=== PATIENT | male | born 1960 | race Asian ===

== ENCOUNTER 2018-11-22 16:36 | Inpatient (IN) | payer MEDICAID, OTHER ==
[~2018-11-22] VITALS: Ht 168.9 cm; Wt 82.7 kg
[2018-11-22] MEDS ORDERED: METF500T24 PO (16:57)
[2018-11-22] MEDS ORDERED: OMEG-135 PO (16:57)
[2018-11-22] MEDS ORDERED: ASPI-817 PO (16:57)
[2018-11-22] MEDS ORDERED: HYDR12.58 PO (16:58)
[2018-11-22] MEDS ORDERED: LISI-471 PO (16:58)
[2018-11-22] MEDS ORDERED: MULT-893 PO (16:59)
[2018-11-22] MEDS ORDERED: SOD CHLORIDE 0.9% 1,000 ML IV STA (17:14)
[2018-11-22] MEDS ORDERED: PANTOPRAZOLE IV 80 MG in SOD CHLORIDE 0.9% 100 ML IVPB STA (17:17)
[2018-11-22] MEDS ORDERED: FAMOTIDINE 20 MG INJ IV STA (17:17)
[2018-11-22] MEDS ORDERED: LORAZEPAM 2 MG INJ IV PRN (18:30)
[2018-11-22] MEDS ORDERED: ALBUTEROL/IPRATROPIUM (NEB) 3 ML AMP HHN PRN (18:30)
[2018-11-22] MEDS ORDERED: ACETAMINOPHEN 325 MG TAB PO PRN (18:30)
[2018-11-22] MEDS ORDERED: HYDROCODONE/APAP (5/325) TAB PO PRN (18:30)
[2018-11-22] MEDS ORDERED: NITROGLYCERIN (SL) 0.4 MG TAB SL PRN (18:30)
[2018-11-22] MEDS ORDERED: morphine 2 MG INJ IV PRN (18:30)
[2018-11-22] MEDS ORDERED: ONDANSETRON 4 MG INJ IV PRN (18:30)
[2018-11-22] MEDS ORDERED: PANTOPRAZOLE IV 80 MG in SOD CHLORIDE 0.9% 100 ML IV SCH (18:30)
[2018-11-22] MEDS ORDERED: MAGNESIUM HYDROXIDE 30ML CUP PO PRN (18:30)
[2018-11-22] MEDS ORDERED: OCTREOTIDE 1 MG in DEXTROSE 5% 95 ML IV SCH (18:30)
[2018-11-22] MEDS ORDERED: NACL 0.9% 3 ML SYG IV SCH (18:30)
[2018-11-22] MEDS ORDERED: DOCUSATE SODIUM 100 MG CAP PO PRN (18:30)
[2018-11-22] MEDS ORDERED: hydrALAzine 20 MG INJ IV PRN (18:30)
[2018-11-22] MEDS ORDERED: SOD CHLORIDE 0.9% 0 ML ONE (18:56)
[2018-11-22] MEDS ORDERED: IOHEXOL 300MG/ML 150 ML BTL ONE (18:56)
[2018-11-22] MEDS ORDERED: PANTOPRAZOLE IV 80 MG in SOD CHLORIDE 0.9% 100 ML IV STA (19:09)
--- NOTE | 2018-11-22 19:10 | ERD ---
ER Documentation Chief Complaint Chief Complaint Bloody stool since tuesday HPI This is a 58-year-old male with a past medical history of diabetes and hypertension. The patient denies any history of alcohol use or NSAID use. The patient indicates that for the past 3 days he has been having dark tarry stools. Earlier today the patient started to notice that he was having bright red blood per rectum. He is felt weak and dizzy. He however denies any abdominal pain. He states he never had any similar symptoms in the past. He is not on any anticoagulation. ROS All systems reviewed and are negative except as per history of present illness. Medications Home Meds Reported Medications Multivit-Min/FA/Lycopen/Lutein (Men 50 Plus Multivitamin Tab) 1 Each Tablet, 1 EACH PO DAILY, TAB 11/22/18 Hydrochlorothiazide* (Hydrochlorothiazide*) 12.5 Mg Tablet, 12.5 MG PO DAILY, #30 TAB 11/22/18 Lisinopril* (Lisinopril*) 20 Mg Tablet, 20 MG PO DAILY, #30 TAB 11/22/18 [place]-3 Fatty Acids/Fish Oil (Fish Oil 1,000 mg Capsule) 1 Each Capsule, 1 EACH PO DAILY, CAP 11/22/18 Aspirin* (Aspirin* EC) 81 Mg Tablet.dr, 81 MG PO DAILY, TAB 11/22/18 Metformin Hcl* (Metformin Hcl*) 500 Mg Tablet, 500 MG PO WITH BREAKFAST DINNE, #60 TAB 11/22/18 Allergies Allergies: Coded Allergies: No Known Allergy (Unverified , 11/22/18) PMhx/Soc History of Surgery: No Anesthesia Reaction: No Hx Neurological Disorder: No Hx Respiratory Disorders: No Hx Cardiac Disorders: Yes (HTN) Hx Psychiatric Problems: No Hx Miscellaneous Medical Probl: No Hx Alcohol Use: No Hx Substance Use: No Hx Tobacco Use: No Smoking Status: Never smoker Physical Exam Vitals Vital Signs Date Temp Pulse Resp B/P (MAP) Pulse Ox O2 O2 Flow FiO2 Time Delivery Rate 11/22/18 98.5 123 20 95/57 (70) 100 Room Air 16:52 11/22/18 98.5 110 20 98/55 (69) 100 16:45 Physical Exam Constitutional:Well-developed. Well-nourished. HEENT:Normocephalic. Atraumatic.Pupils were equal round reactive to light. Moist mucous membranes.No tonsillar exudates. Significant conjunctival pallor Neck: No nuchal rigidity. No lymphadenopathy. No posterior cervical spine tenderness or step-offs. Respiratory: Not using accessory muscles of respiration.Lungs were clear to auscultation bilaterally. No rhonchi. No rales. No wheezing. Cardiovascular: Regular rate regular rhythm.No murmurs. No rubs were appreciated.S1, S2 normal. Distal pulses are palpable 2+ bilaterally. GI: Abdomen was soft. Nontender. Non Distended. No pulsatile abdominal masses or bruits. No rebound. No guarding. Bowel sounds were present and normal. RECTAL: Melanotic stools. Fecal occult blood test was positive. Muscle skeletal: Full range of motion of both the upper and lower extremities bilaterally.Normal muscle tone.No assymetrical calf tenderness or swelling. Skin: Diffuse pallor. No petechia no purpura NEURO: Patient was alert, awake, orientated x3.No facial droop. Result Diagram: 11/23/18 1111 11/23/18 1111 Results 24 hrs Laboratory Tests Test 11/22/18 16:49 White Blood Count 14.0 10^3/ul Red Blood Count 2.23 10^6/ul Hemoglobin 6.7 g/dl Hematocrit 20.4 % Mean Corpuscular Volume 91.5 fl Mean Corpuscular Hemoglobin 30.0 pg Mean Corpuscular Hemoglobin Concent 32.8 g/dl Red Cell Distribution Width 13.3 % Platelet Count 226 10^3/UL Mean Platelet Volume 9.8 fl Immature Granulocytes % 2.000 % Neutrophils % % Lymphocytes % % Monocytes % % Eosinophils % % Basophils % % Nucleated Red Blood Cells % 0.6 /100WBC Immature Granulocytes # 0.280 10^3/ul Neutrophils # 10^3/ul Lymphocytes # 10^3/ul Monocytes # 10^3/ul Eosinophils # 10^3/ul Basophils # 10^3/ul Nucleated Red Blood Cells # 10^3/ul Pathologist Review (Hematology) YES Prothrombin Time 14.7 Sec Prothrombin Time Ratio 1.1 INR International Normalized Ratio 1.14 Activated Partial Thromboplast Time 22.0 Sec Sodium Level 136 mmol/L Potassium Level 4.1 mmol/L Chloride Level 103 mmol/L Carbon Dioxide Level 19 mmol/L Anion Gap 14 Blood Urea Nitrogen 19 mg/dl Creatinine 1.02 mg/dl Est Glomerular Filtrat Rate mL/min > 60 mL/min Glucose Level 320 mg/dl Hemoglobin A1c 9.3 % Calcium Level 7.5 mg/dl Iron Level 58 ug/dl Total Iron Binding Capacity 280 ug/dl Percent Iron Saturation 21 % SAT Transferrin 205 mg/dL Ferritin 121.0 ng/ml Total Bilirubin 0.2 mg/dl Direct Bilirubin 0.00 mg/dl Indirect Bilirubin 0.2 mg/dl Aspartate Amino Transf (AST/SGOT) 25 IU/L Alanine Aminotransferase (ALT/SGPT) 27 IU/L Alkaline Phosphatase 49 IU/L Troponin I < 0.012 ng/ml Total Protein 4.5 g/dl Albumin 2.7 g/dl Globulin 1.80 g/dl Albumin/Globulin Ratio 1.50 Amylase Level 68 U/L Lipase 151 U/L Free Thyroxine 0.78 ng/dl Current Medications Medications Dose Sig/Dinah Start Time Status Last (Trade) Ordered Route PRN Stop Time Admin Dose Reason Admin Sodium 1,000 ml @ Q1H STAT 11/22/18 DC 11/22/18 Chloride 1,000 mls/hr IV 17:14 17:23 11/22/18 18:13 Famotidine 20 mg ONCE STAT 11/22/18 DC 11/22/18 (Pepcid Iv) IV 17:17 17:23 11/22/18 17:18 Pantoprazole 100 ml @ ONCE STAT 11/22/18 DC 11/22/18 80 mg/Sodium 400 mls/hr IVPB 17:17 17:53 Chloride 11/22/18 17:31 IV Flush 3 ml PER 11/22/18 (NS 3 ml) PROTOCOL IV 18:30 Ondansetron 4 mg Q6H PRN 11/22/18 DC HCl (Zofran IV 18:30 Inj) NAUSEA/VOMITI 11/22/18 23:04 NG 650 mg Q6H PRN 11/22/18 Acetaminophen PO .PAIN 1-3 18:30 (Tylenol OR TEMP Tab) 1 tab Q6H PRN 11/22/18 Acetaminophen PO .MOD PAIN 18:30 / 4-6 Hydrocodone Bitart ([place] (5/325)) Morphine 2 mg Q4H PRN 11/22/18 Sulfate IV .SEVERE 18:30 (morphine) PAIN 7-10 Docusate 100 mg Q12H PRN 11/22/18 Sodium PO 18:30 (Colace) .CONSTIPATION Magnesium 30 ml DAILY PRN 11/22/18 Hydroxide PO 18:30 (Milk Of Mag) .CONSTIPATION Lorazepam 0.5 mg Q6H PRN 11/22/18 (Ativan) IV ANXIETY 18:30 Sodium 1,000 ml @ Q8H IV 11/22/18 11/23/18 Chloride 125 mls/hr 18:25 15:36 Albuterol/ 3 ml Q4H RESP 11/22/18 Ipratropium THERAPY PRN 18:30 (Duoneb) HHN SHORTNESS OF BREATH Hydralazine 10 mg Q6H PRN 11/22/18 HCl IV ELEVATED 18:30 (Apresoline) BLOOD PRESSURE 1 tab Q5M PRN 11/22/18 Nitroglycerin SL ANGINA 18:30 (Nitroglyceri n (Sl Tab) 0.4 Mg) Pantoprazole 100 ml @ Q10H IV 11/22/18 DC 11/22/18 80 mg/Sodium 10 mls/hr 18:30 19:52 Chloride 11/23/18 02:18 Octreotide 100 ml @ 5 Q20H IV 11/22/18 DC 11/22/18 Acetate 1 mls/hr 18:30 19:52 mg/ Dextrose 11/22/18 23:04 Procedures/MDM The patient presented to the emergency department with a presentation of upper gastrointestinal bleeding as he was having melanotic stools. My differential diagnosis included but was not limited to peptic ulcer disease, gastric or esophageal erosions, gastritis, esophageal varices, Arina-Crews tear, tumor or arteriovenous malformations. The patient had significant pallor immediately placed in a quality assurance monitor chassis continuous pulse oximetry and IV access was established by nursing staff. the patient said he felt comfortable walking to the bathroom however immediately upon standing the patient became very unsteady in his gait. The patient had near syncope episode. Nursing staff coming to the bedside. The patient had significant pallor, was tachycardic and hypotensive. He was unable to answer questions appropriately. I immediately ordered uncrossed matched blood and placed the patient on a nonrebreather. Within several minutes of using the rapid transfusion of blood the patient had significant improvement of his mental status. He was now alert awake oriented x3. He was maintaining his airway. The tachycardia had resolved. His blood pressure improved. He was typed and crossed 2 units of packed red blood cells. 12 Lead EKG tracing ordered and reviewed by myself showed: Sinus tachycardia of 122 bpm and no arrhythmia. [place] interval normal. QRS duration normal. No ST segment elevation No ST segment depression. No changes consistent with acute ischemia. Repeated EKG after the uncrossed match blood given on an emergent basis due to the active bleeding and again the following. The patient had a sinus tachycardia 101 bpm. Parent arrival is normal QRS duration was normal. There is no ST segment elevation or depression. Nursing staff approached me and indicated that the patient was now having a bowel movement with a significant amount of blood present in the rectal basin. The patient continued to have the active bleeding from the rectum with bright red blood. An emergent GI consult was placed to Dr. Stevens. I spoke with him personally. He indicated that an NG tube should be placed to low to continuous suction in order to further evaluate the etiology of the GI bleed from an upper or lower gastrointestinal bleed. The patient had 2 large-bore catheters 18- gauge. Crossmatch blood was now able to be given to the patient through these IVs with improvement of his blood pressure and tachycardia. The patient will require admission to the intensive care unit with anticipated stay of greater than 2 midnights. He will be admitted to the hospitalist Dr. Gunderson. The patient had leukocytosis but I did not feel his leukocytosis was resolved of an infectious process but rather result of an acute stress reaction from the active rectal hemorrhage. The patient continued to have a significant amount of active rectal hemorrhage. The patient had roughly 5 bed pans of dark red blood that he has lost from the rectum. At this time I did reconsult Dr. Mayte Antoine and indicated the severity of the patient's condition. He will come to the bedside and arrange for the patient to go to the OR for an emergent scope. The NG tube was confirmed to be in good placement with chest radiograph and a Patito syringe push with a air confirming with auscultation the placement over the stomach. However once the NG tube was hooked to suction no blood was removed. The patient had received 7 units of packed red blood cells. Repeat H&H is 11.8 despite receiving 7 units of packed red blood cells. Massive transfusion protocol was initiated given that the patient had received greater than 5 L in 24 hours. This was formed in order to prevent acidosis quite the past the and hypothermia. The patient received fresh frozen plasma as well as a platelet pack. IV crystalloids were only given initially while awaiting for the uncrossed matched blood in order to prevent further dilution of blood component to coagulation factors. Throughout this entire massive transfusion protocol the patient remained alert and awake and orientated with an intact airway. Please note that radu White was not initially called as when the patient first arrived into the emergency department there was no active bleeding. By the time the patient initiated his rectal hemorrhage his blood has been typed and crossed after receiving the first unit of uncrossed matched blood cells. Critical Care: Time: 105 minutes Treatments/Evaluations: Close monitoring and treatment of unstable vital signs, cardiorespiratory, and neurologic status, while maintaining tight balance of fluid, respiratory, and cardiac interventions. Time does not include performing any of the above billable procedures. Departure Diagnosis: Primary Impression: Rectal hemorrhage Additional Impressions: Hyperglycemia without ketosis Lower GI bleed requiring more than 4 units of blood in 24 hours, ICU, or surgery Condition: Serious ISRRAEL KOCH MD Nov 22, 2018 19:07
[2018-11-22] MEDS: SOD CHLORIDE 0.9% 1,000 ML IV SCH ×2 (19:52→22:51)
--- NOTE | 2018-11-22 20:12 | HP ---
DATE OF ADMISSION: 11/22/2018 IDENTIFICATION: This is a 58-year-old male. CHIEF COMPLAINT: Weakness and dizziness. HISTORY OF PRESENT ILLNESS: A 58-year-old male with past medical history of diabetes, hypertension, who comes in with weakness and dizziness symptoms. Most of the information was obtained from the ER documentation as the patient is presently getting blood transfusion and unable to provide a full HPI at this time. Apparently, he had been feeling the symptoms of this for the last couple of days. He also had been noticing some dark stools this past Tuesday, so 4 days ago. He described it as a mixtur e of bright red blood per rectum and dark stools but mostly dark stools. Apparently, the patient den ies any alcohol use or NSAID use. Denied any fevers or chills. No nausea or vomiting. No signs of any upper GI bleeding. No chest pain or shortness of breath. When he arrived today, he was found to be hypotensive, systolic blood pressure in the low 90s, and he was tachycardic as well. Heart rate in the 110 to 120 range. He was given IV fluids and also was found with hemoglobin of 6.7. He got e mergent uncrossmatched blood, 1 unit of O negative blood with significant improvement. However, shor tly after, while the patient was still in the ER, he developed some new onset of bright red blood per rectum and is presently ordered for 3 more units of blood, which he is presently getting now. Emerg ent call has been made out to the GI team as well as the patient may need to have an emergent scoping such as EGD, colonoscopy, or both. Patient is also ordered for a PPI drip now and octreotide drip a s well. PAST MEDICAL HISTORY: As above. ALLERGIES: NO KNOWN DRUG ALLERGIES. HOME MEDICATIONS: Based on list of medicines: 1. Lisinopril 20 mg daily. 2. [place] 3 fatty acids 1 tablet daily. 3. Aspirin 81 mg daily. 4. Hydrochlorothiazide 12.5 mg daily. 5. Metformin 500 mg b.i.d. 6. Multivitamin 1 tab daily. PAST SURGICAL HISTORY: Unknown. SOCIAL HISTORY: Unknown. PHYSICAL EXAMINATION: VITAL SIGNS: T-max 98.5, pulse 110 to 123, respirations 20, blood pressure 95/57, satting 100% on ro om air. GENERAL: The patient is lying in bed, answering questions appropriately, in mild distress. HEENT: Pupils are equal, round, reactive to light. Extraocular muscles intact. NECK: Supple, no thyromegaly. LUNGS: Slightly distant breath sounds bilaterally. CARDIOVASCULAR: Tachycardic heart rate. No rubs or gallops. ABDOMEN: Soft, nontender, nondistended. Normal bowel sounds. No rebound or guarding. MUSCULOSKELETAL: No lower extremity edema bilaterally. NEUROLOGIC: No focal deficits. LABORATORY DATA: WBC 14.0, hemoglobin 6.7, hematocrit 20.4, platelets of 226. Sodium 136, potassium 4.1, chloride 103, CO2 19, BUN of 19, creatinine 1.02, glucose of 320. The LFTs appear to be normal . Amylase and lipase are normal. Coags appear to be normal. DIAGNOSTIC DATA: There are no imaging studies yet. ASSESSMENT AND PLAN: A 58-year-old male, coming in with signs of possible hypovolemic shock after pr esenting with hypotension, tachycardia, signs of severe anemia, and lower gastrointestinal bleeding. 1. Anemia, possible hypovolemic shock. Again, the patient is presently ordered for 4 units total of PRBC transfusion, so we will continue that along with PPI drip and octreotide drip. Check TSH, A1c, lipid panel. Patient will need ICU care. We will get an urgent GI consult, which is presently in t he process of being done. Continue aggressive IV fluid hydration as well. Patient may need to have an emergent GI procedure performed in the next few hours given his continued lower GI bleeding and an emia. Check H and H q. 6 hours as well. Get PT and OT consults as well. Avoid all anticoagulants a t this time. 2. Hypertension. Blood pressure is in the low range as mentioned above. Continue aggressive IV flu id hydration and hold home blood pressure medicines for now. 3. Diabetes. Follow up A1c. Place patient on sliding scale insulin. Dictated By: FRANCISCO VILLASENOR Conf#: [id number] DID#: [id number]
--- NOTE | 2018-11-22 21:28 | PREAC ---
Date/Time of Note Date/Time of Note DATE: 11/22/18 TIME: 21:24 Anesthesia Eval and Record Evaluation Time Pre-Procedure Interview DATE: 11/22/18 TIME: 21:24 Age 58 Sex male NPO: 8 hrs Preoperative diagnosis Severe Anemia, GI bleed Planned procedure Colonoscopy, EGD Past Medical History Past Medical History: Includes Cardio: HTN Endo: Diabetes GI: Obesity Heme: Anemia Surgery & Anesthesia Issues No known issue Meds Anticoagulation: Yes Beta Keira within 24 hr: No Reason Beta Keira not given: Pt. not on B-Keira Reported Medications Multivit-Min/FA/Lycopen/Lutein (Men 50 Plus Multivitamin Tab) 1 Each Tablet, 1 EACH PO DAILY, TAB 11/22/18 Hydrochlorothiazide* (Hydrochlorothiazide*) 12.5 Mg Tablet, 12.5 MG PO DAILY, #30 TAB 11/22/18 Lisinopril* (Lisinopril*) 20 Mg Tablet, 20 MG PO DAILY, #30 TAB 11/22/18 [place]-3 Fatty Acids/Fish Oil (Fish Oil 1,000 mg Capsule) 1 Each Capsule, 1 EACH PO DAILY, CAP 11/22/18 Aspirin* (Aspirin* EC) 81 Mg Tablet.dr, 81 MG PO DAILY, TAB 11/22/18 Metformin Hcl* (Metformin Hcl*) 500 Mg Tablet, 500 MG PO WITH BREAKFAST DINNE, #60 TAB 11/22/18 Current Medications IV Flush (NS 3 ml) 3 ml PER PROTOCOL IV ; Start 11/22/18 at 18:30 Ondansetron HCl (Zofran Inj) 4 mg Q6H PRN IV NAUSEA/VOMITING; Start 11/22/18 at 18:30 Acetaminophen (Tylenol Tab) 650 mg Q6H PRN PO .PAIN 1-3 OR TEMP; Start 11/22/18 at 18:30 Acetaminophen/ Hydrocodone Bitart ([place] (5/325)) 1 tab Q6H PRN PO .MOD PAIN 4- 6; Start 11/22/18 at 18:30 Morphine Sulfate (morphine) 2 mg Q4H PRN IV .SEVERE PAIN 7-10; Start 11/22/18 at 18:30 Docusate Sodium (Colace) 100 mg Q12H PRN PO .CONSTIPATION; Start 11/22/18 at 18:30 Magnesium Hydroxide (Milk Of Mag) 30 ml DAILY PRN PO .CONSTIPATION; Start 11/22/18 at 18:30 Lorazepam (Ativan) 0.5 mg Q6H PRN IV ANXIETY; Start 11/22/18 at 18:30 Sodium Chloride 1,000 ml @ 200 mls/hr Q5H IV Last administered on 11/22/18at 19:52; Admin Dose 200 MLS/HR; Start 11/22/18 at 18:25 Albuterol/ Ipratropium (Duoneb) 3 ml Q4H RESP THERAPY PRN HHN SHORTNESS OF BREATH; Start 11/22/18 at 18:30 Hydralazine HCl (Apresoline) 10 mg Q6H PRN IV ELEVATED BLOOD PRESSURE; Start 11/22/18 at 18:30 Nitroglycerin (Nitroglycerin (Sl Tab) 0.4 Mg) 1 tab Q5M PRN SL ANGINA; Start 11/22/18 at 18:30 Pantoprazole 80 mg/Sodium Chloride 100 ml @ 10 mls/hr Q10H IV Last administered on 11/22/18at 19:52; Admin Dose 10 MLS/HR; Start 11/22/18 at 18:30 Octreotide Acetate 1 mg/ Dextrose 100 ml @ 5 mls/hr Q20H IV Last administered on 11/22/18at 19:52; Admin Dose 5 MLS/HR; Start 11/22/18 at 18:30 Pantoprazole 80 mg/Sodium Chloride 100 ml @ 10 mls/hr ONCE STAT IV Last administered on 11/22/18at 19:53; Admin Dose 10 MLS/HR; Start 11/22/18 at 19:09; Stop 11/23/18 at 05:08 Meds reviewed: Yes Allergies Coded Allergies: No Known Allergy (Unverified , 11/22/18) Allergies Reviewed: Yes Labs/Studies Labs Reviewed: Reviewed by anesthesiologist Result Diagram: 11/22/18202711/22/18 1649 Laboratory Tests 11/22/18 16:49 11/22/18 20:28 Blood Bank Test 11/22/18 16:49 Antibody Screen NEGATIVE Blood Product Summary Counts Blood Type B POSITIVE Crossmatch Red Blood Cells test: N/A Studies: ECG Pre-procedure Exam Last vitals Vital Signs Date Temp Pulse Resp B/P (MAP) Pulse Ox O2 O2 Flow FiO2 Time Delivery Rate 11/22/18 97.7 101 21 96/82 (87) 100 Room Air 21:00 Airway: Adequate mouth opening, Adequate thyromental dist Mallampati: Mallampati III Teeth: Normal Lung: Normal Heart: Normal ASA Physical Status ASA physical status: 3 Emergency: E Planned Anesthetic General/MAC: MAC Planned Pain Management Parenteral pain med Pre-operative Attestations Prior to commencing anesthesia and surgery, the patient was re-evaluated, there was verification of: *The patient's identity *The results of appropriate recent lab work and preoperative vital signs *The above evaluation not changing prior to induction *Anesthetic plan, risk benefits, alternative and complications discussed with patient/family; questions answered; patient/family understands, accepts and wishes to proceed. ROBE BALLARD MD Nov 22, 2018 21:28
[2018-11-22] MEDS ORDERED: PHENYLephrine 10 MG INJ ONE (21:46)
[2018-11-22] MEDS ORDERED: MIDAZOLAM 1 MG/ML 2 ML INJ ONE ×2 (21:47→21:56)
[2018-11-22] MEDS ORDERED: KETAMINE (50 MG/ML) 10 ML VIAL ONE (21:50)
[2018-11-22] MEDS ORDERED: LIDOCAINE 2% (SDV) 5 ML INJ ONE (22:18)
[2018-11-22] MEDS ORDERED: PROPOFOL 20 ML ONE (22:18)
[2018-11-22 22:40] VITALS: BP 106/63; PULSE 78; RESP 22
--- NOTE | 2018-11-22 22:41 | CONS ---
Assessment/Plan Assessment/Plan Assessment/Plan (Daily) Impression: GI bleeding likely lower GI bleeding with profuse hematochezia. Anemia secondary to above. History of high blood pressure. History of diabetes mellitus. History of ethanol abuse. Plan: Urgent colonoscopy tonight. Further recommendation will depend on our findings. Consultation Date/Type/Reason Admit Date/Time Nov 22, 2018 at 18:36 Date of Consultation: Nov 22, 2018 Type of Consult Gastroenterology Reason for Consultation Lower GI bleeding/hematochezia. Date/Time of Note DATE: 11/22/18 TIME: 22:35 Hx of Present Illness 58-year-old male with history of hypertension diabetes mellitus and ethanol abuse. The patient presented to the emergency room complaining of weakness. He states that 3 days ago he had some rectal bleeding of moderate amounts. The patient has never had bleeding prior to this location. This morning he had multiple episodes of bright red blood per rectum reason for which he came to the emergency room. While in the emergency room he had again multiple episodes of hematochezia and at times drop his blood pressure. Emergency room physician has transfused 7 units of packed red cells. I advised to repeat H&H which came back at 11.6. Fresh frozen plasma was also advised is currently running. The patient denies abdominal pain denies previous history of gastrointestinal bleeding. Denies use of ulcerogenic drugs. At the present time the patient appears to be hemodynamically stable and will proceed with call colonoscopy hoping to identify the source of bleeding. The procedure was explained to the patient in detail including risks, benefits and alternatives. This is considered an emergency procedure. Review of Systems: [A 12 system, review was conducted and is negative except as noted in the HPI or here.] Past Medical History Hypertension. Diabetes mellitus. Home Meds Reported Medications Multivit-Min/FA/Lycopen/Lutein (Men 50 Plus Multivitamin Tab) 1 Each Tablet, 1 EACH PO DAILY, TAB 11/22/18 Hydrochlorothiazide* (Hydrochlorothiazide*) 12.5 Mg Tablet, 12.5 MG PO DAILY, #30 TAB 11/22/18 Lisinopril* (Lisinopril*) 20 Mg Tablet, 20 MG PO DAILY, #30 TAB 11/22/18 [place]-3 Fatty Acids/Fish Oil (Fish Oil 1,000 mg Capsule) 1 Each Capsule, 1 EACH PO DAILY, CAP 11/22/18 Aspirin* (Aspirin* EC) 81 Mg Tablet.dr, 81 MG PO DAILY, TAB 11/22/18 Metformin Hcl* (Metformin Hcl*) 500 Mg Tablet, 500 MG PO WITH BREAKFAST DINNE, #60 TAB 11/22/18 Medications Current Medications IV Flush (NS 3 ml) 3 ml PER PROTOCOL IV ; Start 11/22/18 at 18:30 Ondansetron HCl (Zofran Inj) 4 mg Q6H PRN IV NAUSEA/VOMITING; Start 11/22/18 at 18:30 Acetaminophen (Tylenol Tab) 650 mg Q6H PRN PO .PAIN 1-3 OR TEMP; Start 11/22/18 at 18:30 Acetaminophen/ Hydrocodone Bitart ([place] (5/325)) 1 tab Q6H PRN PO .MOD PAIN 4- 6; Start 11/22/18 at 18:30 Morphine Sulfate (morphine) 2 mg Q4H PRN IV .SEVERE PAIN 7-10; Start 11/22/18 at 18:30 Docusate Sodium (Colace) 100 mg Q12H PRN PO .CONSTIPATION; Start 11/22/18 at 18:30 Magnesium Hydroxide (Milk Of Mag) 30 ml DAILY PRN PO .CONSTIPATION; Start 11/22/18 at 18:30 Lorazepam (Ativan) 0.5 mg Q6H PRN IV ANXIETY; Start 11/22/18 at 18:30 Sodium Chloride 1,000 ml @ 200 mls/hr Q5H IV Last administered on 11/22/18at 19:52; Admin Dose 200 MLS/HR; Start 11/22/18 at 18:25 Albuterol/ Ipratropium (Duoneb) 3 ml Q4H RESP THERAPY PRN HHN SHORTNESS OF BREATH; Start 11/22/18 at 18:30 Hydralazine HCl (Apresoline) 10 mg Q6H PRN IV ELEVATED BLOOD PRESSURE; Start 11/22/18 at 18:30 Nitroglycerin (Nitroglycerin (Sl Tab) 0.4 Mg) 1 tab Q5M PRN SL ANGINA; Start 11/22/18 at 18:30 Pantoprazole 80 mg/Sodium Chloride 100 ml @ 10 mls/hr Q10H IV Last administered on 11/22/18at 19:52; Admin Dose 10 MLS/HR; Start 11/22/18 at 18:30 Octreotide Acetate 1 mg/ Dextrose 100 ml @ 5 mls/hr Q20H IV Last administered on 11/22/18at 19:52; Admin Dose 5 MLS/HR; Start 11/22/18 at 18:30 Pantoprazole 80 mg/Sodium Chloride 100 ml @ 10 mls/hr ONCE STAT IV Last administered on 11/22/18at 19:53; Admin Dose 10 MLS/HR; Start 11/22/18 at 19:09; Stop 11/23/18 at 05:08 Allergies: Coded Allergies: No Known Allergy (Unverified , 11/22/18) Past Surgical History Past Surgical Hx: no surgical history Family History Significant Family History: no pertinent family hx Social History Alcohol Use: other (Moderate) Smoking Status: Never smoker Drug Use: none Exam/Review of Systems Exam Vitals Vital Signs Date Temp Pulse Resp B/P (MAP) Pulse Ox O2 O2 Flow FiO2 Time Delivery Rate 11/22/18 97.7 101 21 96/82 (87) 100 Room Air 21:00 Exam PHYSICAL EXAMINATION: GENERAL: Well developed, well nourished, obese, alert & oriented x 3, in no acute distress SKIN: No lesions, no stigmata chronic liver disease, no evidence of bleeding diathesis LYMPHATIC: No palpable lymphadenopathy. HEAD: Normocephalic, atraumatic, no tenderness. EYES: Pupils equal reactive to light and accommodation, full extraocular movements, sclera clear, non-icteric, no discharge. EARS/NOSE AND THROAT: Ears normal, nose normal, oropharynx normal, oral membranes well hydrated without lesions. NECK: Supple, no masses, thyroid normal, JVP within normal limits, carotids normal without bruits. CHEST: Inspection within normal limits. CARDIOVASCULAR: Heart: Regular rate and rhythm, no murmurs, gallops or rubs. Peripheral pulses present within normal limits, no cyanosis, clubbing or edemas. No pulsatile abdominal mass RESPIRATORY: Lungs clear to auscultation and percussion, no wheezing, no rubs GASTROINTESTINAL AND LIVER: Abdomen: Soft, non tenderness, moderately distended, no hernias, no masses, no organomegaly, no ascites, no guarding, no rebound tenderness, normoactive bowel sounds. Rectal: Fresh blood in the examining glove GENITOURINARY: [Male genitalia within normal limits.][ EXTREMITIES: No cyanosis, clubbing or edema. [MUSCULO-SKELETAL: Gait and station within normal limits, range of motion adequate.] [NEUROLOGIC: Cranial nerves II-XII intact, Motor within normal limits, Sensory within normal limits. Reflexes within normal limits. PSYCHIATRIC: Alert & oriented x 3, mood/affect/judgement adequate] Results Result Diagram: 11/22/18202711/22/18 1649 Results 24hrs Laboratory Tests Test 11/22/18 16:49 11/22/18 20:28 White Blood Count 14.0 H Red Blood Count 2.23 L Hemoglobin 6.7 *L 11.8 #L Hematocrit 20.4 L 38.7 #L Mean Corpuscular Volume 91.5 Mean Corpuscular Hemoglobin 30.0 Mean Corpuscular Hemoglobin Concent 32.8 Red Cell Distribution Width 13.3 Platelet Count 226 Mean Platelet Volume 9.8 Immature Granulocytes % 2.000 H Neutrophils % Lymphocytes % Monocytes % Eosinophils % Basophils % Nucleated Red Blood Cells % 0.6 H Immature Granulocytes # 0.280 H Neutrophils # Lymphocytes # Monocytes # Eosinophils # Basophils # Nucleated Red Blood Cells # Pathologist Review (Hematology) YES Prothrombin Time 14.7 Prothrombin Time Ratio 1.1 INR International Normalized Ratio 1.14 Activated Partial Thromboplast Time 22.0 L Sodium Level 136 Potassium Level 4.1 Chloride Level 103 Carbon Dioxide Level 19 L Anion Gap 14 H Blood Urea Nitrogen 19 Creatinine 1.02 Est Glomerular Filtrat Rate mL/min > 60 Glucose Level 320 H Hemoglobin A1c 9.3 H Calcium Level 7.5 L Iron Level 58 Total Iron Binding Capacity 280 Percent Iron Saturation 21 L Ferritin 121.0 Total Bilirubin 0.2 Direct Bilirubin 0.00 Indirect Bilirubin 0.2 Aspartate Amino Transf (AST/SGOT) 25 Alanine Aminotransferase (ALT/SGPT) 27 Alkaline Phosphatase 49 Troponin I < 0.012 Total Protein 4.5 L Albumin 2.7 L Globulin 1.80 Albumin/Globulin Ratio 1.50 Amylase Level 68 Lipase 151 Free Thyroxine 0.78 Medications Medication Current Medications IV Flush (NS 3 ml) 3 ml PER PROTOCOL IV ; Start 11/22/18 at 18:30 Ondansetron HCl (Zofran Inj) 4 mg Q6H PRN IV NAUSEA/VOMITING; Start 11/22/18 at 18:30 Acetaminophen (Tylenol Tab) 650 mg Q6H PRN PO .PAIN 1-3 OR TEMP; Start 11/22/18 at 18:30 Acetaminophen/ Hydrocodone Bitart ([place] (5/325)) 1 tab Q6H PRN PO .MOD PAIN 4- 6; Start 11/22/18 at 18:30 Morphine Sulfate (morphine) 2 mg Q4H PRN IV .SEVERE PAIN 7-10; Start 11/22/18 at 18:30 Docusate Sodium (Colace) 100 mg Q12H PRN PO .CONSTIPATION; Start 11/22/18 at 18:30 Magnesium Hydroxide (Milk Of Mag) 30 ml DAILY PRN PO .CONSTIPATION; Start 11/22/18 at 18:30 Lorazepam (Ativan) 0.5 mg Q6H PRN IV ANXIETY; Start 11/22/18 at 18:30 Sodium Chloride 1,000 ml @ 200 mls/hr Q5H IV Last administered on 11/22/18at 19:52; Admin Dose 200 MLS/HR; Start 11/22/18 at 18:25 Albuterol/ Ipratropium (Duoneb) 3 ml Q4H RESP THERAPY PRN HHN SHORTNESS OF BREATH; Start 11/22/18 at 18:30 Hydralazine HCl (Apresoline) 10 mg Q6H PRN IV ELEVATED BLOOD PRESSURE; Start 11/22/18 at 18:30 Nitroglycerin (Nitroglycerin (Sl Tab) 0.4 Mg) 1 tab Q5M PRN SL ANGINA; Start 11/22/18 at 18:30 Pantoprazole 80 mg/Sodium Chloride 100 ml @ 10 mls/hr Q10H IV Last administered on 11/22/18at 19:52; Admin Dose 10 MLS/HR; Start 11/22/18 at 18:30 Octreotide Acetate 1 mg/ Dextrose 100 ml @ 5 mls/hr Q20H IV Last administered on 11/22/18 19:52; Admin Dose 5 MLS/HR; Start 11/22/18 at 18:30 Pantoprazole 80 mg/Sodium Chloride 100 ml @ 10 mls/hr ONCE STAT IV Last administered on 11/22/18at 19:53; Admin Dose 10 MLS/HR; Start 11/22/18 at 19:09; Stop 11/23/18 at 05:08 JARON BURNETT MD Nov 22, 2018 22:41
[2018-11-22 22:45] VITALS: BP 102/68; PULSE 78; RESP 22
--- NOTE | 2018-11-22 22:46 | OPPN ---
Date/Time of Note Date/Time of Note DATE: 11/22/18 TIME: 22:41 Proc Note GI Procedure Date 11/22/18 Indication: diagnostic, treatment Pre-procedure Diagnosis GI bleeding/hematochezia Post-procedure Diagnosis Impression: Poorly prepared colon. Moderate amounts of blood throughout the colon. No active bleeding present. No potential bleeding site identified. No evidence of diverticular disease of significance. Moderate to large internal hemorrhoids with no evidence of bleeding. Cecum poorly visualized due to retained material. Plan: Continue close monitoring transfuse as necessary. Obtain stat nuclear bleeding scan to attempt localization if active bleeding present. Transfuse for hemoglobin less than 7.5. Repeat colonoscopy under optimal conditions when patient is stable or as an outpatient Procedure Performed: Colonoscopy Surgeon JARON BURNETT MD See signature line Salesperson Hearing Aids none Anesthesia Type: MAC Anesthesiologist: ROBE BALLARD MD Tourniquet Time none EBL none Transfusion required none Biopsy 1: None Grafts/Implants none Tubes/Drains none Complication(s) none Disposition: other (ICU) Procedure Description After informed consent, with the patient/relatives understanding the procedure, its indications and potential risks and complications, including but not limited to: Allergic reaction, bleeding, perforation, infection, and after all pertinent questions were answered to the patient's satisfaction, the patient/relatives signed the witnessed informed consent. Following this, premedication was administered slowly IV push under careful cardiovascular and respiratory monitoring with pulse OXIMETRY, automatic blood pressure, and potline monitor. Once the sedative effect was achieved, the patient was placed in the left lateral decubitus position, digital rectal examination was performed. The colonoscope was then introduced and advanced under visual control throughout all segments of the colon including: the rectum, sigmoid, descending colon, splenic flexure, transverse colon, hepatic flexure, ascending colon and finally reaching the cecum which was clearly identified by transillumination, finger indentation and the ileocecal valve. Careful examination of the mucosa of the lower gastrointestinal tract both on insertion as well as withdrawal of the instrument disclosed the following findings: PREPARATION QUALITY: Poor with retained materials in the area of the cecum and the rectum. Extensive lavage was applied. Procedure completed] RECTAL EXAM: The anorectal area was visualized examined and digital rectal examination performed with the following findings: No evidence of perirectal disease, no masses. COLONIC MUCOSA: The mucosa of all segments of the colon was carefully examined and showed the following findings: Moderate amounts of relatively fresh blood encountered throughout the colon. No active accumulation is present. No bleeding site is identified. No potential bleeding site is identified. Moderate to large internal hemorrhoids with no evidence of bleeding are present. Otherwise the examined mucosa appears within normal limits with limitations related to poor preparation.. There is no evidence of inflammatory changes, diverticular formation, polyps or neoplasms, vascular malformation, or any other abnormality. The instrument was then withdrawn, the patient tolerated the procedure well and was transferred out of the Endoscopy Suite awake and in good condition to continue recovery under observation. Copies To: CC: JARON BURNETT MD ; JARON BURNETT MD Nov 22, 2018 22:46
[2018-11-22 23:00] VITALS: BP 98/65; PULSE 81
[2018-11-22] MEDS ORDERED: FUROSEMIDE 40 MG INJ IV ONE (23:00)
[2018-11-22 23:15] VITALS: BP 105/70; PULSE 87
[2018-11-22] MEDS: FAMOTIDINE 20 MG INJ IV SCH (23:16)
[2018-11-22 23:45] VITALS: BP 113/75; PULSE 93
[2018-11-23] VITALS (43 sets, daily range): BP systolic 84–139; BP diastolic 39–92; PULSE 73–108; RESP 15–28; Ht 168.9 cm; Wt 82.7 kg
[2018-11-23] MEDS: SOD CHLORIDE 0.9% 1,000 ML IV SCH ×3 (03:45→15:36)
[2018-11-23] MEDS ORDERED: IOHEXOL 14.3 MG(I)/ML (ADULT) BTL PO ONE (06:30)
[2018-11-23] MEDS: FAMOTIDINE 20 MG INJ IV SCH ×2 (08:27→21:32)
[2018-11-23] MEDS ORDERED: SOD CHLORIDE 0.9% 100 ML ONE (09:27)
[2018-11-23] MEDS ORDERED: IOHEXOL 300MG/ML 150 ML BTL ONE (09:27)
--- NOTE | 2018-11-23 10:19 | PN ---
Date/Time of Note Date/Time of Note DATE: 11/23/18 TIME: 10:08 Assessment/Plan VTE Prophylaxis Pharmacological prophylaxis: NA/contraindicated Pharm contraindication: bleeding Lines/Catheters IV [facility]from [facility] Peripheral IV Urinary Cath still in place: No Assessment/Plan Hospital Course Impression: GI bleeding likely lower GI bleeding with profuse hematochezia. Anemia secondary to above. History of high blood pressure. History of diabetes mellitus. History of ethanol abuse. Plan: Stat bleeding scan- pending No out-put from NGT- will d/c Pending results of NM bleeding scan - will plan to repeat endoscopic evaluation with EGD as well if indicated Patient seen in collaboration with Dr. Stevens Subjective: Course reviewed with nursing staff Patient interviewed and examined All labs, imaging and other results reviewed The patient resting in bed, decrease in hgb by 2 points this am No overt signs of GI bleed. Currently patient feels well No c/o abd pain ,nausea or vomiting. Pt notes NGT is causing some discomfort Exam PHYSICAL EXAMINATION: GENERAL: Well developed, well nourished, obese, alert & oriented x 3, in no acute distress SKIN: No lesions, no stigmata chronic liver disease, no evidence of bleeding diathesis HEAD: Normocephalic, atraumatic, no tenderness. EYES: Pupils equal reactive to light and accommodation, non-icteric, no discharge. EARS/NOSE AND THROAT: Ears normal, nose normal. NECK: Supple, no masses. CHEST: Inspection within normal limits. CARDIOVASCULAR: Heart: Regular rate and rhythm RESPIRATORY: Lungs clear to auscultation GASTROINTESTINAL AND LIVER: Abdomen: Soft, non tenderness, moderately distended, no hernias, no masses, no organomegaly, no ascites, no guarding, no rebound tenderness, normoactive bowel sounds. Rectal: Fresh blood in the examining glove EXTREMITIES: No cyanosis, clubbing or edema. Result Diagram: 11/23/18 0459 11/23/18 0459 Results 24hrs Laboratory Tests Test 11/22/18 16:49 11/22/18 20:28 11/23/18 04:59 11/23/18 05:00 White Blood Count 14.0 H 21.2 #H Red Blood Count 2.23 L 3.02 #L Hemoglobin 6.7 *L 11.8 #L 9.1 #L Hematocrit 20.4 L 38.7 #L 26.7 #L Mean Corpuscular 91.5 88.4 Volume Mean Corpuscular 30.0 30.1 Hemoglobin Mean Corpuscular 32.8 34.1 Hemoglobin Concen t Red Cell 13.3 14.2 Distribution Width Platelet Count 226 105 #L Mean Platelet 9.8 10.8 H Volume Immature 2.000 H 4.200 H Granulocytes % Neutrophils % 82.9 H Lymphocytes % 7.6 L Monocytes % 5.0 Eosinophils % 0.0 Basophils % 0.3 Nucleated Red 0.6 H 1.6 H Blood Cells % Immature 0.280 H 0.900 H Granulocytes # Neutrophils # 17.6 H Lymphocytes # 1.6 Monocytes # 1.1 H Eosinophils # 0.0 Basophils # 0.1 Nucleated Red 0.3 H Blood Cells # Pathologist YES Review (Hematolog y) Prothrombin Time 14.7 Prothrombin Time 1.1 Ratio INR International 1.14 Normalized Ratio Activated 22.0 L Partial Thrombopl ast Time Sodium Level 136 140 Potassium Level 4.1 4.4 Chloride Level 103 113 H Carbon Dioxide 19 L 18 L Level Anion Gap 14 H 9 # Blood Urea 19 19 Nitrogen Creatinine 1.02 0.83 Est Glomerular > 60 > 60 Filtrat Rate mL/min Glucose Level 320 H 268 H Hemoglobin A1c 9.3 H 6.5 H Calcium Level 7.5 L 6.3 L Iron Level 58 Total Iron 280 Binding Capacity Percent Iron 21 L Saturation Ferritin 121.0 Total Bilirubin 0.2 Direct Bilirubin 0.00 Indirect 0.2 Bilirubin Aspartate Amino 25 Transf (AST/SGOT) Alanine 27 Aminotransferase (ALT/SGPT) Alkaline 49 Phosphatase Troponin I < 0.012 Total Protein 4.5 L Albumin 2.7 L Globulin 1.80 Albumin/Globulin 1.50 Ratio Amylase Level 68 Lipase 151 Free Thyroxine 0.78 Phosphorus Level 3.4 Magnesium Level 1.7 Triglycerides 132 Level Cholesterol Level 77 L LDL Cholesterol, 28 Calculated HDL Cholesterol 23 L Cholesterol/HDL 3.3 Ratio Thyroid 0.278 L Stimulating Hormone (TSH) Test 11/23/18 05:07 Lab Scanned BLOOD TRANSFUSIO Report N Exam/Review of Systems Exam Vitals Vital Signs Date Temp Pulse Resp B/P (MAP) Pulse Ox O2 O2 Flow FiO2 Time Delivery Rate 11/23/18 98.9 85 16 116/68 96 08:00 (84) 11/23/18 Room Air 07:00 11/23/18 2.0 02:00 Intake and Output 11/22/18 11/22/18 11/23/18 1515:00 23:00 07:00 IntakeIntake Total 2100 ml 1400 ml OutputOutput Total 2000 ml 1020 ml BalanceBalance 100 ml 380 ml Results Results 24hrs Laboratory Tests Test 11/22/18 16:49 11/22/18 20:28 11/23/18 04:59 11/23/18 05:00 White Blood Count 14.0 H 21.2 #H Red Blood Count 2.23 L 3.02 #L Hemoglobin 6.7 *L 11.8 #L 9.1 #L Hematocrit 20.4 L 38.7 #L 26.7 #L Mean Corpuscular 91.5 88.4 Volume Mean Corpuscular 30.0 30.1 Hemoglobin Mean Corpuscular 32.8 34.1 Hemoglobin Concen t Red Cell 13.3 14.2 Distribution Width Platelet Count 226 105 #L Mean Platelet 9.8 10.8 H Volume Immature 2.000 H 4.200 H Granulocytes % Neutrophils % 82.9 H Lymphocytes % 7.6 L Monocytes % 5.0 Eosinophils % 0.0 Basophils % 0.3 Nucleated Red 0.6 H 1.6 H Blood Cells % Immature 0.280 H 0.900 H Granulocytes # Neutrophils # 17.6 H Lymphocytes # 1.6 Monocytes # 1.1 H Eosinophils # 0.0 Basophils # 0.1 Nucleated Red 0.3 H Blood Cells # Pathologist YES Review (Hematolog y) Prothrombin Time 14.7 Prothrombin Time 1.1 Ratio INR International 1.14 Normalized Ratio Activated 22.0 L Partial Thrombopl ast Time Sodium Level 136 140 Potassium Level 4.1 4.4 Chloride Level 103 113 H Carbon Dioxide 19 L 18 L Level Anion Gap 14 H 9 # Blood Urea 19 19 Nitrogen Creatinine 1.02 0.83 Est Glomerular > 60 > 60 Filtrat Rate mL/min Glucose Level 320 H 268 H Hemoglobin A1c 9.3 H 6.5 H Calcium Level 7.5 L 6.3 L Iron Level 58 Total Iron 280 Binding Capacity Percent Iron 21 L Saturation Ferritin 121.0 Total Bilirubin 0.2 Direct Bilirubin 0.00 Indirect 0.2 Bilirubin Aspartate Amino 25 Transf (AST/SGOT) Alanine 27 Aminotransferase (ALT/SGPT) Alkaline 49 Phosphatase Troponin I < 0.012 Total Protein 4.5 L Albumin 2.7 L Globulin 1.80 Albumin/Globulin 1.50 Ratio Amylase Level 68 Lipase 151 Free Thyroxine 0.78 Phosphorus Level 3.4 Magnesium Level 1.7 Triglycerides 132 Level Cholesterol Level 77 L LDL Cholesterol, 28 Calculated HDL Cholesterol 23 L Cholesterol/HDL 3.3 Ratio Thyroid 0.278 L Stimulating Hormone (TSH) Test 11/23/18 05:07 Lab Scanned BLOOD TRANSFUSIO Report N Medications Medication Current Medications IV Flush (NS 3 ml) 3 ml PER PROTOCOL IV ; Start 11/22/18 at 18:30 Acetaminophen (Tylenol Tab) 650 mg Q6H PRN PO .PAIN 1-3 OR TEMP; Start 11/22/18 at 18:30 Acetaminophen/ Hydrocodone Bitart ([place] (5/325)) 1 tab Q6H PRN PO .MOD PAIN 4- 6; Start 11/22/18 at 18:30 Morphine Sulfate (morphine) 2 mg Q4H PRN IV .SEVERE PAIN 7-10; Start 11/22/18 at 18:30 Docusate Sodium (Colace) 100 mg Q12H PRN PO .CONSTIPATION; Start 11/22/18 at 18:30 Magnesium Hydroxide (Milk Of Mag) 30 ml DAILY PRN PO .CONSTIPATION; Start 11/22/18 at 18:30 Lorazepam (Ativan) 0.5 mg Q6H PRN IV ANXIETY; Start 11/22/18 at 18:30 Sodium Chloride 1,000 ml @ 200 mls/hr Q5H IV Last administered on 11/23/18at 08:22; Admin Dose 200 MLS/HR; Start 11/22/18 at 18:25 Albuterol/ Ipratropium (Duoneb) 3 ml Q4H RESP THERAPY PRN HHN SHORTNESS OF BREATH; Start 11/22/18 at 18:30 Hydralazine HCl (Apresoline) 10 mg Q6H PRN IV ELEVATED BLOOD PRESSURE; Start 11/22/18 at 18:30 Nitroglycerin (Nitroglycerin (Sl Tab) 0.4 Mg) 1 tab Q5M PRN SL ANGINA; Start 11/22/18 at 18:30 Famotidine (Pepcid Iv) 20 mg BID IV Last administered on 11/23/18at 08:27; Admin Dose 20 MG; Start 11/22/18 at 23:30 GONZALO TUTTLE 20, 2019 10:18
--- NOTE | 2018-11-23 10:20 | PN ---
Date/Time of Note Date/Time of Note DATE: 11/23/18 TIME: 10:14 Assessment/Plan VTE Prophylaxis SCD applied (from Nsg): Yes Pharmacological prophylaxis: NA/contraindicated Pharm contraindication: bleeding Lines/Catheters IV Catheter Type (from Nrsg): Peripheral IV Urinary Cath still in place: No Assessment/Plan Hospital Course S: Patient received total of 7 units PRBC transfusion last night, also received FFP x2 yesterday. Had emergent colonoscopy performed last night as well but no source of bleeding found. Patient per nursing staff not having any current upper or lower GI bleeding symptoms. O: VS - see below PHYSICAL EXAMINATION: GENERAL: lying in bed, answering questions appropriately HEENT: Pupils are equal, round, reactive to light. Extraocular muscles intact. NECK: Supple, no thyromegaly. LUNGS: Clear to auscultation bilaterally CARDIOVASCULAR: Tachycardic heart rate. No rubs or gallops. ABDOMEN: Soft, nontender, nondistended. Normal bowel sounds. No rebound or guarding. MUSCULOSKELETAL: No lower extremity edema bilaterally. NEUROLOGIC: No focal deficits. Date/Time of Note Date/Time of Note DATE: 11/22/18 TIME: 22:41 Proc Note GI Indication: diagnostic, treatment Pre-procedure Diagnosis GI bleeding/hematochezia Post-procedure Diagnosis Impression: Poorly prepared colon. Moderate amounts of blood throughout the colon. No active bleeding present. No potential bleeding site identified. No evidence of diverticular disease of significance. Moderate to large internal hemorrhoids with no evidence of bleeding. Cecum poorly visualized due to retained material. ASSESSMENT AND PLAN: 58-year-old male, coming in with signs of possible hypovolemic shock after presenting with hypotension, tachycardia, signs of severe anemia, and lower gastrointestinal bleeding. 1. Severe anemia with GI bleeding/possible hypovolemic shock. Again, status post 7 units total of PRBC transfusion. Emergent colonoscopy performed yesterday but prep was not able to be administered, no bleeding site identified. -For now continue H2-jose angel IV twice daily, and repeat CBC stat now -Follow-up results of CT scan abdomen pelvis and patient also awaiting nuclear bleeding scan -Continue aggressive IV fluid hydration as well -Per GI team, likely planning for repeat EGD colonoscopy one better prepped 2. Hypertension-stable now after being hypotensive yesterday. -Monitor for now, continue IV fluids -Still holding home blood pressure medicines 3. Diabetes-sugars in the high normal range, however the A1c appears to be inaccurate as there are different readings for this and patient did receive multiple blood products yesterday as well -Monitor sugars, continue sliding scale insulin, and will repeat A1c check. Critical care time spent in patient care today equals 50 minutes. Result Diagram: 11/23/18 0459 11/23/18 0459 Results 24hrs Laboratory Tests Test 11/22/18 16:49 11/22/18 20:28 11/23/18 04:59 11/23/18 05:00 White Blood Count 14.0 H 21.2 #H Red Blood Count 2.23 L 3.02 #L Hemoglobin 6.7 *L 11.8 #L 9.1 #L Hematocrit 20.4 L 38.7 #L 26.7 #L Mean Corpuscular 91.5 88.4 Volume Mean Corpuscular 30.0 30.1 Hemoglobin Mean Corpuscular 32.8 34.1 Hemoglobin Concen t Red Cell 13.3 14.2 Distribution Width Platelet Count 226 105 #L Mean Platelet 9.8 10.8 H Volume Immature 2.000 H 4.200 H Granulocytes % Neutrophils % 82.9 H Lymphocytes % 7.6 L Monocytes % 5.0 Eosinophils % 0.0 Basophils % 0.3 Nucleated Red 0.6 H 1.6 H Blood Cells % Immature 0.280 H 0.900 H Granulocytes # Neutrophils # 17.6 H Lymphocytes # 1.6 Monocytes # 1.1 H Eosinophils # 0.0 Basophils # 0.1 Nucleated Red 0.3 H Blood Cells # Pathologist YES Review (Hematolog y) Prothrombin Time 14.7 Prothrombin Time 1.1 Ratio INR International 1.14 Normalized Ratio Activated 22.0 L Partial Thrombopl ast Time Sodium Level 136 140 Potassium Level 4.1 4.4 Chloride Level 103 113 H Carbon Dioxide 19 L 18 L Level Anion Gap 14 H 9 # Blood Urea 19 19 Nitrogen Creatinine 1.02 0.83 Est Glomerular > 60 > 60 Filtrat Rate mL/min Glucose Level 320 H 268 H Hemoglobin A1c 9.3 H 6.5 H Calcium Level 7.5 L 6.3 L Iron Level 58 Total Iron 280 Binding Capacity Percent Iron 21 L Saturation Ferritin 121.0 Total Bilirubin 0.2 Direct Bilirubin 0.00 Indirect 0.2 Bilirubin Aspartate Amino 25 Transf (AST/SGOT) Alanine 27 Aminotransferase (ALT/SGPT) Alkaline 49 Phosphatase Troponin I < 0.012 Total Protein 4.5 L Albumin 2.7 L Globulin 1.80 Albumin/Globulin 1.50 Ratio Amylase Level 68 Lipase 151 Free Thyroxine 0.78 Phosphorus Level 3.4 Magnesium Level 1.7 Triglycerides 132 Level Cholesterol Level 77 L LDL Cholesterol, 28 Calculated HDL Cholesterol 23 L Cholesterol/HDL 3.3 Ratio Thyroid 0.278 L Stimulating Hormone (TSH) Test 11/23/18 05:07 Lab Scanned BLOOD TRANSFUSIO Report N Exam/Review of Systems Exam Vitals Vital Signs Date Temp Pulse Resp B/P (MAP) Pulse Ox O2 O2 Flow FiO2 Time Delivery Rate 11/23/18 98.9 85 16 116/68 96 08:00 (84) 11/23/18 Room Air 07:00 11/23/18 2.0 02:00 Intake and Output 11/22/18 11/22/18 11/23/18 1515:00 23:00 07:00 IntakeIntake Total 2100 ml 1400 ml OutputOutput Total 2000 ml 1020 ml BalanceBalance 100 ml 380 ml Results Results 24hrs Laboratory Tests Test 11/22/18 16:49 11/22/18 20:28 11/23/18 04:59 11/23/18 05:00 White Blood Count 14.0 H 21.2 #H Red Blood Count 2.23 L 3.02 #L Hemoglobin 6.7 *L 11.8 #L 9.1 #L Hematocrit 20.4 L 38.7 #L 26.7 #L Mean Corpuscular 91.5 88.4 Volume Mean Corpuscular 30.0 30.1 Hemoglobin Mean Corpuscular 32.8 34.1 Hemoglobin Concen t Red Cell 13.3 14.2 Distribution Width Platelet Count 226 105 #L Mean Platelet 9.8 10.8 H Volume Immature 2.000 H 4.200 H Granulocytes % Neutrophils % 82.9 H Lymphocytes % 7.6 L Monocytes % 5.0 Eosinophils % 0.0 Basophils % 0.3 Nucleated Red 0.6 H 1.6 H Blood Cells % Immature 0.280 H 0.900 H Granulocytes # Neutrophils # 17.6 H Lymphocytes # 1.6 Monocytes # 1.1 H Eosinophils # 0.0 Basophils # 0.1 Nucleated Red 0.3 H Blood Cells # Pathologist YES Review (Hematolog y) Prothrombin Time 14.7 Prothrombin Time 1.1 Ratio INR International 1.14 Normalized Ratio Activated 22.0 L Partial Thrombopl ast Time Sodium Level 136 140 Potassium Level 4.1 4.4 Chloride Level 103 113 H Carbon Dioxide 19 L 18 L Level Anion Gap 14 H 9 # Blood Urea 19 19 Nitrogen Creatinine 1.02 0.83 Est Glomerular > 60 > 60 Filtrat Rate mL/min Glucose Level 320 H 268 H Hemoglobin A1c 9.3 H 6.5 H Calcium Level 7.5 L 6.3 L Iron Level 58 Total Iron 280 Binding Capacity Percent Iron 21 L Saturation Ferritin 121.0 Total Bilirubin 0.2 Direct Bilirubin 0.00 Indirect 0.2 Bilirubin Aspartate Amino 25 Transf (AST/SGOT) Alanine 27 Aminotransferase (ALT/SGPT) Alkaline 49 Phosphatase Troponin I < 0.012 Total Protein 4.5 L Albumin 2.7 L Globulin 1.80 Albumin/Globulin 1.50 Ratio Amylase Level 68 Lipase 151 Free Thyroxine 0.78 Phosphorus Level 3.4 Magnesium Level 1.7 Triglycerides 132 Level Cholesterol Level 77 L LDL Cholesterol, 28 Calculated HDL Cholesterol 23 L Cholesterol/HDL 3.3 Ratio Thyroid 0.278 L Stimulating Hormone (TSH) Test 11/23/18 05:07 Lab Scanned BLOOD TRANSFUSIO Report N Medications Medication Current Medications IV Flush (NS 3 ml) 3 ml PER PROTOCOL IV ; Start 11/22/18 at 18:30 Acetaminophen (Tylenol Tab) 650 mg Q6H PRN PO .PAIN 1-3 OR TEMP; Start 11/22/18 at 18:30 Acetaminophen/ Hydrocodone Bitart ([place] (5/325)) 1 tab Q6H PRN PO .MOD PAIN 4- 6; Start 11/22/18 at 18:30 Morphine Sulfate (morphine) 2 mg Q4H PRN IV .SEVERE PAIN 7-10; Start 11/22/18 at 18:30 Docusate Sodium (Colace) 100 mg Q12H PRN PO .CONSTIPATION; Start 11/22/18 at 18:30 Magnesium Hydroxide (Milk Of Mag) 30 ml DAILY PRN PO .CONSTIPATION; Start 11/22/18 at 18:30 Lorazepam (Ativan) 0.5 mg Q6H PRN IV ANXIETY; Start 11/22/18 at 18:30 Sodium Chloride 1,000 ml @ 200 mls/hr Q5H IV Last administered on 11/23/18at 08:22; Admin Dose 200 MLS/HR; Start 11/22/18 at 18:25 Albuterol/ Ipratropium (Duoneb) 3 ml Q4H RESP THERAPY PRN HHN SHORTNESS OF BREATH; Start 11/22/18 at 18:30 Hydralazine HCl (Apresoline) 10 mg Q6H PRN IV ELEVATED BLOOD PRESSURE; Start 11/22/18 at 18:30 Nitroglycerin (Nitroglycerin (Sl Tab) 0.4 Mg) 1 tab Q5M PRN SL ANGINA; Start 11/22/18 at 18:30 Famotidine (Pepcid Iv) 20 mg BID IV Last administered on 11/23/18at 08:27; Admin Dose 20 MG; Start 11/22/18 at 23:30 FRANCISCO RODRÍGUEZ Nov 23, 2018 10:20
[2018-11-24] VITALS (39 sets, daily range): BP systolic 70–150; BP diastolic 45–100; PULSE 60–94; RESP 12–29
[2018-11-24] MEDS: SOD CHLORIDE 0.9% 1,000 ML IV SCH ×2 (00:58→08:40)
[2018-11-24] MEDS ORDERED: MAGNESIUM CITRATE 300 ML BTL PO ONE (08:00)
[2018-11-24] MEDS: FAMOTIDINE 20 MG INJ IV SCH ×2 (08:40→20:46)
--- NOTE | 2018-11-24 09:08 | PN ---
Date/Time of Note Date/Time of Note DATE: 11/24/18 TIME: 09:06 Assessment/Plan VTE Prophylaxis Risk score (from Ns)>0 risk: 2 SCD applied (from Ns): Yes Pharmacological prophylaxis: NA/contraindicated Pharm contraindication: bleeding Lines/Catheters IV [facility] Type (from [facility]): Peripheral IV Urinary Cath still in place: No Assessment/Plan Hospital Course S: Patient had bleeding scan performed yesterday and received 1 more unit of PRBC transfusion yesterday. Per nursing staff, no signs of any further GI bleeding overnight. Awaiting repeat EGD and colonoscopy for later today. O: VS - see below PHYSICAL EXAMINATION: GENERAL: lying in bed, answering questions appropriately HEENT: Pupils are equal, round, reactive to light. Extraocular muscles intact. NECK: Supple, no thyromegaly. LUNGS: Clear to auscultation bilaterally CARDIOVASCULAR: S1, S2 heard. No rubs or gallops. ABDOMEN: Soft, nontender, nondistended. Normal bowel sounds. No rebound or guarding. MUSCULOSKELETAL: No lower extremity edema bilaterally. NEUROLOGIC: No focal deficits. Date/Time of Note Date/Time of Note DATE: 11/22/18 TIME: 22:41 Proc Note GI Indication: diagnostic, treatment Pre-procedure Diagnosis GI bleeding/hematochezia Post-procedure Diagnosis Impression: Poorly prepared colon. Moderate amounts of blood throughout the colon. No active bleeding present. No potential bleeding site identified. No evidence of diverticular disease of significance. Moderate to large internal hemorrhoids with no evidence of bleeding. Cecum poorly visualized due to retained material. CT scan abdomen pelvis with and without contrast: IMPRESSION: 1. No evidence of intra-abdominal hemorrhage. 2. Exophytic enhancing 1.3 cm lesion arising from the low to interpolar segment of left kidney suspicious for renal cell carcinoma. 3. Gallbladder is moderately distended and demonstrates mild pericholecystic fluid and fat stranding. No wall thickening or cholelithiasis. Consider right upper quadrant ultrasound for further evaluation regarding acute cholecystitis. 4. CBD is mildly dilated and measures 8 mm. If there is clinical concern for choledocholithiasis further evaluation with MRCP will be modality of choice. 5. Mild hepatomegaly. 6. Scattered colonic diverticulosis. ASSESSMENT AND PLAN: 58-year-old male, coming in with signs of possible hypo volemic shock after presenting with hypotension, tachycardia, signs of severe anemia, and lower gastrointestinal bleeding. 1. Severe anemia with GI bleeding/possible hypovolemic shock. Again, status post 7 units total of PRBC transfusion. Emergent colonoscopy performed yesterday but prep was not able to be administered, no bleeding site identified. -continue H2-jose angel IV twice daily -Follow-up final results/delayed imaging results of nuclear bleeding scan test performed yesterday -Continue IV fluid hydration as well -Again, awaiting repeat EGD colonoscopy later today, follow-up post procedure recommendations of this -Given CT scan findings of possible left renal mass, will go ahead and consult hematology oncology team for further input 2. Hypertension-stable now after being hypotensive on admission. -Monitor for now, continue IV fluids -Still holding home blood pressure medicines 3. Diabetes-A1c 6.6 -Monitor sugars, continue sliding scale insulin Critical care time spent in patient care today equals 45 minutes. Result Diagram: 11/24/18 0555 11/24/18 0555 Results 24hrs Laboratory Tests Test 11/23/18 11:11 11/23/18 18:13 11/24/18 02:55 11/24/18 05:13 White Blood Count 17.2 H Red Blood Count 2.71 L Hemoglobin 8.0 L 7.3 L Hematocrit 24.1 L 22.0 L Mean Corpuscular 88.9 Volume Mean Corpuscular 29.5 Hemoglobin Mean Corpuscular 33.2 Hemoglobin Concen t Red Cell 14.5 Distribution Width Platelet Count 115 L Mean Platelet 10.5 H Volume Immature 2.300 H Granulocytes % Neutrophils % 79.7 H Lymphocytes % 8.5 L Monocytes % 9.2 Eosinophils % 0.1 Basophils % 0.2 Nucleated Red 1.3 H Blood Cells % Immature 0.390 H Granulocytes # Neutrophils # 13.7 H Lymphocytes # 1.5 Monocytes # 1.6 H Eosinophils # 0.0 Basophils # 0.0 Nucleated Red 0.2 H Blood Cells # Sodium Level 140 Potassium Level 3.9 Chloride Level 113 H Carbon Dioxide 21 Level Anion Gap 6 Blood Urea 19 Nitrogen Creatinine 0.79 Est Glomerular > 60 Filtrat Rate mL/min Glucose Level 250 H Hemoglobin A1c 6.6 H Calcium Level 6.3 L Bedside Glucose 203 Lab Scanned BLOOD TRANSFUSIO Report N Test 11/24/18 05:55 White Blood Count 18.1 H Red Blood Count 2.71 L Hemoglobin 7.9 L Hematocrit 24.3 L Mean Corpuscular 89.7 Volume Mean Corpuscular 29.2 Hemoglobin Mean Corpuscular 32.5 Hemoglobin Concen t Red Cell 15.0 H Distribution Width Platelet Count 124 L Mean Platelet 9.7 Volume Immature 2.500 H Granulocytes % Neutrophils % 72.0 Lymphocytes % 13.5 L Monocytes % 10.3 Eosinophils % 1.2 Basophils % 0.5 Nucleated Red 2.5 H Blood Cells % Immature 0.450 H Granulocytes # Neutrophils # 13.1 H Lymphocytes # 2.4 Monocytes # 1.9 H Eosinophils # 0.2 Basophils # 0.1 Nucleated Red 0.5 H Blood Cells # Sodium Level 138 Potassium Level 3.4 L Chloride Level 111 H Carbon Dioxide 22 Level Anion Gap 5 Blood Urea 18 Nitrogen Creatinine 0.67 Est Glomerular > 60 Filtrat Rate mL/min Glucose Level 192 Calcium Level 6.4 L Exam/Review of Systems Exam Vitals Vital Signs Date Temp Pulse Resp B/P (MAP) Pulse Ox O2 O2 Flow FiO2 Time Delivery Rate 11/24/18 68 18 110/59 95 06:30 (76) 11/24/18 Room Air 06:00 11/24/18 98.7 04:00 11/23/18 2.0 02:00 Intake and Output 11/23/18 11/23/18 11/24/18 1515:00 23:00 07:00 IntakeIntake Total 1815 ml 1900 ml 755 ml OutputOutput Total 500 ml 800 ml 830 ml BalanceBalance 1315 ml 1100 ml -75 ml Results Results 24hrs Laboratory Tests Test 11/23/18 11:11 11/23/18 18:13 11/24/18 02:55 11/24/18 05:13 White Blood Count 17.2 H Red Blood Count 2.71 L Hemoglobin 8.0 L 7.3 L Hematocrit 24.1 L 22.0 L Mean Corpuscular 88.9 Volume Mean Corpuscular 29.5 Hemoglobin Mean Corpuscular 33.2 Hemoglobin Concen t Red Cell 14.5 Distribution Width Platelet Count 115 L Mean Platelet 10.5 H Volume Immature 2.300 H Granulocytes % Neutrophils % 79.7 H Lymphocytes % 8.5 L Monocytes % 9.2 Eosinophils % 0.1 Basophils % 0.2 Nucleated Red 1.3 H Blood Cells % Immature 0.390 H Granulocytes # Neutrophils # 13.7 H Lymphocytes # 1.5 Monocytes # 1.6 H Eosinophils # 0.0 Basophils # 0.0 Nucleated Red 0.2 H Blood Cells # Sodium Level 140 Potassium Level 3.9 Chloride Level 113 H Carbon Dioxide 21 Level Anion Gap 6 Blood Urea 19 Nitrogen Creatinine 0.79 Est Glomerular > 60 Filtrat Rate mL/min Glucose Level 250 H Hemoglobin A1c 6.6 H Calcium Level 6.3 L Bedside Glucose 203 Lab Scanned BLOOD TRANSFUSIO Report N Test 11/24/18 05:55 White Blood Count 18.1 H Red Blood Count 2.71 L Hemoglobin 7.9 L Hematocrit 24.3 L Mean Corpuscular 89.7 Volume Mean Corpuscular 29.2 Hemoglobin Mean Corpuscular 32.5 Hemoglobin Concen t Red Cell 15.0 H Distribution Width Platelet Count 124 L Mean Platelet 9.7 Volume Immature 2.500 H Granulocytes % Neutrophils % 72.0 Lymphocytes % 13.5 L Monocytes % 10.3 Eosinophils % 1.2 Basophils % 0.5 Nucleated Red 2.5 H Blood Cells % Immature 0.450 H Granulocytes # Neutrophils # 13.1 H Lymphocytes # 2.4 Monocytes # 1.9 H Eosinophils # 0.2 Basophils # 0.1 Nucleated Red 0.5 H Blood Cells # Sodium Level 138 Potassium Level 3.4 L Chloride Level 111 H Carbon Dioxide 22 Level Anion Gap 5 Blood Urea 18 Nitrogen Creatinine 0.67 Est Glomerular > 60 Filtrat Rate mL/min Glucose Level 192 Calcium Level 6.4 L Medications Medication Current Medications IV Flush (NS 3 ml) 3 ml PER PROTOCOL IV ; Start 11/22/18 at 18:30 Acetaminophen (Tylenol Tab) 650 mg Q6H PRN PO .PAIN 1-3 OR TEMP; Start 11/22/18 at 18:30 Acetaminophen/ Hydrocodone Bitart ([place] (5/325)) 1 tab Q6H PRN PO .MOD PAIN 4- 6; Start 11/22/18 at 18:30 Morphine Sulfate (morphine) 2 mg Q4H PRN IV .SEVERE PAIN 7-10; Start 11/22/18 at 18:30 Docusate Sodium (Colace) 100 mg Q12H PRN PO .CONSTIPATION; Start 11/22/18 at 18:30 Magnesium Hydroxide (Milk Of Mag) 30 ml DAILY PRN PO .CONSTIPATION; Start 11/22/18 at 18:30 Lorazepam (Ativan) 0.5 mg Q6H PRN IV ANXIETY; Start 11/22/18 at 18:30 Sodium Chloride 1,000 ml @ 125 mls/hr Q8H IV Last administered on 11/24/18at 08:40; Admin Dose 125 MLS/HR; Start 11/22/18 at 18:25 Albuterol/ Ipratropium (Duoneb) 3 ml Q4H RESP THERAPY PRN HHN SHORTNESS OF BREATH; Start 11/22/18 at 18:30 Hydralazine HCl (Apresoline) 10 mg Q6H PRN IV ELEVATED BLOOD PRESSURE; Start 11/22/18 at 18:30 Nitroglycerin (Nitroglycerin (Sl Tab) 0.4 Mg) 1 tab Q5M PRN SL ANGINA; Start 11/22/18 at 18:30 Famotidine (Pepcid Iv) 20 mg BID IV Last administered on 11/24/18at 08:40; Admin Dose 20 MG; Start 11/22/18 at 23:30 FRANCISCO RODRÍGUEZ Nov 24, 2018 09:08
[2018-11-24] MEDS ORDERED: POTASSIUM CHLORIDE 100 ML IVPB ONE (09:30)
--- NOTE | 2018-11-24 13:10 | CONS ---
Assessment/Plan Assessment/Plan Hospital Course (Demo Recall) 58 yo with what appears to be a LGIB and renal mass # renal mass once he is more stable for GIB perspective, can further w/u renal mass would recommend further evaluation with MRI abdo with and w/o contrast for better evaluation if radiographically it appears to be RCCa, recommend urology consult for resection check CT chest for full staging # LGIB repeat colonoscopy this afternoon keep Hgb >7 with prbc transfusion ferrlecit daily x 3 Consultation Date/Type/Reason Admit Date/Time Nov 22, 2018 at 18:36 Date/Time of Note DATE: 11/24/18 TIME: 13:09 Hx of Present Illness A 58-year-old male with past medical history of diabetes, hypertension, who comes in with weakness and dizziness symptoms. Most of the information was obtained from the ER documentation as the patient is presently getting blood transfusion and unable to provide a full HPI at this time. Apparently, he had been feeling the symptoms of this for the last couple of days. He also had been noticing some dark stools this past Tuesday, so 4 days ago. He described it as a mixture of bright red blood per rectum and dark stools but mostly dark stools. Apparently, the patient denies any alcohol use or NSAID use. Denied any fevers or chills. No nausea or vomiting. No signs of any upper GI bleeding. No chest pain or shortness of breath. When he arrived today, he was found to be hypotensive, systolic blood pressure in the low 90s, and he was tachycardic as well. Heart rate in the 110 to 120 range. He was given IV fluids and also was found with hemoglobin of 6. Pt underwent colonoscopy. Poor prep CT AP w and w/o contrast: 1. No evidence of intra-abdominal hemorrhage. 2. Exophytic enhancing 1.3 cm lesion arising from the low to interpolar segment of left kidney suspicious for renal cell carcinoma. 3. Gallbladder is moderately distended and demonstrates mild pericholecystic fluid and fat stranding. No wall thickening or cholelithiasis. Consider right upper quadrant ultrasound for further evaluation regarding acute cholecystitis. 4. CBD is mildly dilated and measures 8 mm. If there is clinical concern for choledocholithiasis further evaluation with MRCP will be modality of choice. 5. Mild hepatomegaly. 6. Scattered colonic diverticulosis. prior to this he has never had a colonoscopy he smoked for many years 1ppd x 200 , quit >10 years ago Laboratory Tests Test 11/22/18 16:49 11/22/18 20:28 11/23/18 04:59 11/23/18 11:11 Blood Urea Nitrogen 19 mg/dl 19 mg/dl 19 mg/dl Carbon Dioxide Level 19 mmol/L 18 mmol/L 21 mmol/L Chloride Level 103 mmol/L 113 mmol/L 113 mmol/L Creatinine 1.02 mg/dl 0.83 mg/dl 0.79 mg/dl Glucose Level 320 mg/dl 268 mg/dl 250 mg/dl Hematocrit 20.4 % 38.7 % 26.7 % 24.1 % Hemoglobin 6.7 g/dl 11.8 g/dl 9.1 g/dl 8.0 g/dl Platelet Count 226 10^3/UL 105 10^3/UL 115 10^3/UL Potassium Level 4.1 mmol/L 4.4 mmol/L 3.9 mmol/L Sodium Level 136 mmol/L 140 mmol/L 140 mmol/L White Blood Count 14.0 10^3/ul 21.2 10^3/ul 17.2 10^3/ul Test 11/23/18 18:13 11/24/18 05:55 Hematocrit 22.0 % 24.3 % Hemoglobin 7.3 g/dl 7.9 g/dl Blood Urea Nitrogen 18 mg/dl Carbon Dioxide Level 22 mmol/L Chloride Level 111 mmol/L Creatinine 0.67 mg/dl Glucose Level 192 mg/dl Platelet Count 124 10^3/UL Potassium Level 3.4 mmol/L Sodium Level 138 mmol/L White Blood Count 18.1 10^3/ul Chemistry Test 11/22/18 16:49 Ferritin 121.0 ng/ml (11.1-264.0) Iron Level 58 ug/dl (35-150) Total Iron Binding Capacity 280 ug/dl (241-421) Constitutional: poor po Respiratory: no complaints Cardiovascular: no complaints Gastrointestinal: no complaints Genitourinary: no complaints Musculoskeletal: no complaints Skin: no complaints Neurologic: no complaints Endocrine: no complaints Psychological: no complaints, nl mood/affect Immunologic: no complaints Past Medical History Home Meds Reported Medications Multivit-Min/FA/Lycopen/Lutein (Men 50 Plus Multivitamin Tab) 1 Each Tablet, 1 EACH PO DAILY, TAB 11/22/18 Hydrochlorothiazide* (Hydrochlorothiazide*) 12.5 Mg Tablet, 12.5 MG PO DAILY, #30 TAB 11/22/18 Lisinopril* (Lisinopril*) 20 Mg Tablet, 20 MG PO DAILY, #30 TAB 11/22/18 [place]-3 Fatty Acids/Fish Oil (Fish Oil 1,000 mg Capsule) 1 Each Capsule, 1 EACH PO DAILY, CAP 11/22/18 Aspirin* (Aspirin* EC) 81 Mg Tablet.dr, 81 MG PO DAILY, TAB 11/22/18 Metformin Hcl* (Metformin Hcl*) 500 Mg Tablet, 500 MG PO WITH BREAKFAST DINNE, #60 TAB 11/22/18 Medications Current Medications IV Flush (NS 3 ml) 3 ml PER PROTOCOL IV ; Start 11/22/18 at 18:30 Acetaminophen (Tylenol Tab) 650 mg Q6H PRN PO .PAIN 1-3 OR TEMP; Start 11/22/18 at 18:30 Acetaminophen/ Hydrocodone Bitart ([place] (5/325)) 1 tab Q6H PRN PO .MOD PAIN 4- 6; Start 11/22/18 at 18:30 Morphine Sulfate (morphine) 2 mg Q4H PRN IV .SEVERE PAIN 7-10; Start 11/22/18 at 18:30 Docusate Sodium (Colace) 100 mg Q12H PRN PO .CONSTIPATION; Start 11/22/18 at 18:30 Magnesium Hydroxide (Milk Of Mag) 30 ml DAILY PRN PO .CONSTIPATION; Start 11/22/18 at 18:30 Lorazepam (Ativan) 0.5 mg Q6H PRN IV ANXIETY; Start 11/22/18 at 18:30 Sodium Chloride 1,000 ml @ 75 mls/hr [id number] IV Last administered on 11/24/18at 08:40; Admin Dose 125 MLS/HR; Start 11/22/18 at 18:25 Albuterol/ Ipratropium (Duoneb) 3 ml Q4H RESP THERAPY PRN HHN SHORTNESS OF BREATH; Start 11/22/18 at 18:30 Hydralazine HCl (Apresoline) 10 mg Q6H PRN IV ELEVATED BLOOD PRESSURE; Start 11/22/18 at 18:30 Nitroglycerin (Nitroglycerin (Sl Tab) 0.4 Mg) 1 tab Q5M PRN SL ANGINA; Start 11/22/18 at 18:30 Famotidine (Pepcid Iv) 20 mg BID IV Last administered on 11/24/18at 08:40; Admin Dose 20 MG; Start 11/22/18 at 23:30 Allergies: Coded Allergies: No Known Allergy (Unverified , 11/22/18) Past Surgical History Past Surgical Hx: no surgical history Social History Alcohol Use: other (Moderate) Smoking Status: Never smoker Drug Use: none Exam/Review of Systems Exam Vitals Vital Signs Date Temp Pulse Resp B/P (MAP) Pulse Ox O2 O2 Flow FiO2 Time Delivery Rate 11/24/18 81 19 134/74 98 Room Air 09:00 (94) 11/24/18 98.0 08:00 11/23/18 2.0 02:00 Intake and Output 11/23/18 11/23/18 11/24/18 1515:00 23:00 07:00 IntakeIntake Total 1815 ml 1900 ml 755 ml OutputOutput Total 500 ml 800 ml 830 ml BalanceBalance 1315 ml 1100 ml -75 ml Constitutional: alert, oriented, well developed Psych: no complaints, nl mood/affect Eyes: nl conjunctiva, EOMI, nl lids, nl sclera, PERRL Gastrointestinal: soft, nl liver, spleen, non-tender Extremities: normal pulses Results Result Diagram: 11/24/18 0555 11/24/18 0555 Results 24hrs Laboratory Tests Test 11/23/18 18:13 11/24/18 02:55 11/24/18 05:13 11/24/18 05:55 Hemoglobin 7.3 L 7.9 L Hematocrit 22.0 L 24.3 L Bedside Glucose 203 Lab Scanned BLOOD TRANSFUSIO Report N White Blood Count 18.1 H Red Blood Count 2.71 L Mean Corpuscular 89.7 Volume Mean Corpuscular 29.2 Hemoglobin Mean Corpuscular 32.5 Hemoglobin Concen t Red Cell 15.0 H Distribution Width Platelet Count 124 L Mean Platelet 9.7 Volume Immature 2.500 H Granulocytes % Neutrophils % 72.0 Lymphocytes % 13.5 L Monocytes % 10.3 Eosinophils % 1.2 Basophils % 0.5 Nucleated Red 2.5 H Blood Cells % Immature 0.450 H Granulocytes # Neutrophils # 13.1 H Lymphocytes # 2.4 Monocytes # 1.9 H Eosinophils # 0.2 Basophils # 0.1 Nucleated Red 0.5 H Blood Cells # Sodium Level 138 Potassium Level 3.4 L Chloride Level 111 H Carbon Dioxide 22 Level Anion Gap 5 Blood Urea 18 Nitrogen Creatinine 0.67 Est Glomerular > 60 Filtrat Rate mL/min Glucose Level 192 Calcium Level 6.4 L Medications Medication Current Medications IV Flush (NS 3 ml) 3 ml PER PROTOCOL IV ; Start 11/22/18 at 18:30 Acetaminophen (Tylenol Tab) 650 mg Q6H PRN PO .PAIN 1-3 OR TEMP; Start 11/22/18 at 18:30 Acetaminophen/ Hydrocodone Bitart ([place] (5/325)) 1 tab Q6H PRN PO .MOD PAIN 4- 6; Start 11/22/18 at 18:30 Morphine Sulfate (morphine) 2 mg Q4H PRN IV .SEVERE PAIN 7-10; Start 11/22/18 at 18:30 Docusate Sodium (Colace) 100 mg Q12H PRN PO .CONSTIPATION; Start 11/22/18 at 18:30 Magnesium Hydroxide (Milk Of Mag) 30 ml DAILY PRN PO .CONSTIPATION; Start 11/22/18 at 18:30 Lorazepam (Ativan) 0.5 mg Q6H PRN IV ANXIETY; Start 11/22/18 at 18:30 Sodium Chloride 1,000 ml @ 75 mls/hr [id number] IV Last administered on 11/24/18at 08:40; Admin Dose 125 MLS/HR; Start 11/22/18 at 18:25 Albuterol/ Ipratropium (Duoneb) 3 ml Q4H RESP THERAPY PRN HHN SHORTNESS OF BREATH; Start 11/22/18 at 18:30 Hydralazine HCl (Apresoline) 10 mg Q6H PRN IV ELEVATED BLOOD PRESSURE; Start 11/22/18 at 18:30 Nitroglycerin (Nitroglycerin (Sl Tab) 0.4 Mg) 1 tab Q5M PRN SL ANGINA; Start 11/22/18 at 18:30 Famotidine (Pepcid Iv) 20 mg BID IV Last administered on 11/24/18 08:40; Admin Dose 20 MG; Start 11/22/18 at 23:30 OLIVIA MELENDEZ Nov 24, 2018 13:10
--- NOTE | 2018-11-24 14:43 | PREAC ---
Date/Time of Note Date/Time of Note DATE: 11/24/18 TIME: 14:42 Anesthesia Eval and Record Evaluation Time Pre-Procedure Interview DATE: 11/24/18 TIME: 14:42 Age 58 Sex male NPO: 8 hrs Preoperative diagnosis Anemia, GI bleed Planned procedure EGD/ colonoscopy Past Medical History Past Medical History: Includes Cardio: HTN Endo: Diabetes GI: Obesity Heme: Anemia Surgery & Anesthesia Issues No known issue Meds Anticoagulation: No Beta Keira within 24 hr: No Reason Beta Keira not given: Pt. not on B-Keira Reported Medications Multivit-Min/FA/Lycopen/Lutein (Men 50 Plus Multivitamin Tab) 1 Each Tablet, 1 EACH PO DAILY, TAB 11/22/18 Hydrochlorothiazide* (Hydrochlorothiazide*) 12.5 Mg Tablet, 12.5 MG PO DAILY, #30 TAB 11/22/18 Lisinopril* (Lisinopril*) 20 Mg Tablet, 20 MG PO DAILY, #30 TAB 11/22/18 [place]-3 Fatty Acids/Fish Oil (Fish Oil 1,000 mg Capsule) 1 Each Capsule, 1 EACH PO DAILY, CAP 11/22/18 Aspirin* (Aspirin* EC) 81 Mg Tablet.dr, 81 MG PO DAILY, TAB 11/22/18 Metformin Hcl* (Metformin Hcl*) 500 Mg Tablet, 500 MG PO WITH BREAKFAST DINNE, #60 TAB 11/22/18 Current Medications IV Flush (NS 3 ml) 3 ml PER PROTOCOL IV ; Start 11/22/18 at 18:30 Acetaminophen (Tylenol Tab) 650 mg Q6H PRN PO .PAIN 1-3 OR TEMP; Start 11/22/18 at 18:30 Acetaminophen/ Hydrocodone Bitart ([place] (5/325)) 1 tab Q6H PRN PO .MOD PAIN 4- 6; Start 11/22/18 at 18:30 Morphine Sulfate (morphine) 2 mg Q4H PRN IV .SEVERE PAIN 7-10; Start 11/22/18 at 18:30 Docusate Sodium (Colace) 100 mg Q12H PRN PO .CONSTIPATION; Start 11/22/18 at 18:30 Magnesium Hydroxide (Milk Of Mag) 30 ml DAILY PRN PO .CONSTIPATION; Start 11/22/18 at 18:30 Lorazepam (Ativan) 0.5 mg Q6H PRN IV ANXIETY; Start 11/22/18 at 18:30 Sodium Chloride 1,000 ml @ 75 mls/hr [id number] IV Last administered on 11/24/18at 08:40; Admin Dose 125 MLS/HR; Start 11/22/18 at 18:25 Albuterol/ Ipratropium (Duoneb) 3 ml Q4H RESP THERAPY PRN HHN SHORTNESS OF BREATH; Start 11/22/18 at 18:30 Hydralazine HCl (Apresoline) 10 mg Q6H PRN IV ELEVATED BLOOD PRESSURE; Start 11/22/18 at 18:30 Nitroglycerin (Nitroglycerin (Sl Tab) 0.4 Mg) 1 tab Q5M PRN SL ANGINA; Start 11/22/18 at 18:30 Famotidine (Pepcid Iv) 20 mg BID IV Last administered on 11/24/18at 08:40; Admin Dose 20 MG; Start 11/22/18 at 23:30 Meds reviewed: Yes Allergies Coded Allergies: No Known Allergy (Unverified , 11/22/18) Allergies Reviewed: Yes Labs/Studies Labs Reviewed: Reviewed by anesthesiologist Result Diagram: 11/24/18 0555 11/24/18 0555 Laboratory Tests 11/24/18 05:55 test: N/A Studies: ECG, CXR Pre-procedure Exam Last vitals Vital Signs Date Temp Pulse Resp B/P (MAP) Pulse Ox O2 O2 Flow FiO2 Time Delivery Rate 11/24/18 60 13 105/66 97 Room Air 13:00 (79) 11/24/18 98.0 08:00 11/23/18 2.0 02:00 Airway: Adequate mouth opening Mallampati: Mallampati II Teeth: Normal Lung: Normal Heart: Normal ASA Physical Status ASA physical status: 3 Emergency: None Planned Anesthetic General/MAC: MAC Pre-operative Attestations Prior to commencing anesthesia and surgery, the patient was re-evaluated, there was verification of: *The patient's identity *The results of appropriate recent lab work and preoperative vital signs *The above evaluation not changing prior to induction *Anesthetic plan, risk benefits, alternative and complications discussed with patient/family; questions answered; patient/family understands, accepts and wishes to proceed. RICHI CONNOR Nov 24, 2018 14:43
[2018-11-24] MEDS ORDERED: LIDOCAINE 2% (SDV) 5 ML INJ ONE (16:22)
[2018-11-24] MEDS ORDERED: PROPOFOL 20 ML ONE (16:22)
[2018-11-24] MEDS ORDERED: ETOMIDATE 20 MG INJ ONE (16:22)
[2018-11-24] MEDS ORDERED: hydrALAzine 20 MG INJ IV PRN (17:00)
[2018-11-24] MEDS ORDERED: EPHEDrine 25 MG/5 ML SYG IV PRN (17:00)
[2018-11-24] MEDS ORDERED: LABETALOL HCL 20MG INJ IV PRN (17:00)
[2018-11-24] MEDS ORDERED: ONDANSETRON 4 MG INJ IV PRN (17:00)
--- NOTE | 2018-11-24 17:19 | PAC ---
Date/Time of Note Date/Time of Note DATE: 11/24/18 TIME: 17:19 Post-Anesthesia Notes Post-Anesthesia Note Last documented vital signs Vital Signs Date Temp Pulse Resp B/P (MAP) Pulse Ox O2 O2 Flow FiO2 Time Delivery Rate 11/24/18 74 21 115/65 100 Room Air 17:00 (82) 11/24/18 98.0 16:00 11/23/18 2.0 02:00 Activity: WNL Respiratory function: WNL Cardiovascular function: WNL Mental status: Baseline Pain reasonably controlled: Yes Hydration appropriate: Yes Nausea/Vomiting absent: Yes Comments Bp: 111/61 HR: 69 RR: 15 T: 98 SaO2: 100% UNIQUE RUTHERFORD MD Nov 24, 2018 17:19
[2018-11-24] MEDS ORDERED: GLUCOSE GEL 15 GRAM TUBE PO PRN ×2 (21:30)
[2018-11-24] MEDS ORDERED: GLUCAGON 1 MG INJ IM PRN (21:30)
[2018-11-24] MEDS ORDERED: DEXTROSE 50% 50 ML SYRINGE IV PRN ×2 (21:30)
[2018-11-24] MEDS ORDERED: GLUCOSE GEL 15 GRAM TUBE BUCCAL PRN (21:30)
[2018-11-25] VITALS (10 sets, daily range): BP systolic 105–159; BP diastolic 53–74; PULSE 63–80; RESP 19–20
[2018-11-25] MEDS: FAMOTIDINE 20 MG INJ IV SCH (08:17)
[2018-11-25] MEDS: ACCU-CHEK XX SCH ×4 (08:17→22:00)
[2018-11-25] MEDS: INSULIN ASPART [NOVOLOG] 3 ML PEN SC SCH ×4 (08:22→21:00)
--- NOTE | 2018-11-25 11:01 | PN ---
Date/Time of Note Date/Time of Note DATE: 11/25/18 TIME: 10:59 Assessment/Plan VTE Prophylaxis Risk score (from Ns)>0 risk: 1 SCD applied (from Ns): No SCD contraindicated: other (scds) Pharmacological prophylaxis: NA/contraindicated Pharm contraindication: bleeding Lines/Catheters IV Catheter Type (from [facility], [place]): Saline Lock Urinary Cath still in place: No Assessment/Plan Hospital Course Impression: GI bleeding likely lower GI bleeding with profuse hematochezia. 11/22/18 Impression: Poorly prepared colon. Moderate amounts of blood throughout the colon. No active bleeding present. No potential bleeding site identified. No evidence of diverticular disease of significance. Moderate to large internal hemorrhoids with no evidence of bleeding. Cecum poorly visualized due to retained material. EGD 11/24/2018 Normal EGD. No bleeding site or potential bleeding site identified to the third portion of the duodenum Colonoscopy 11/24/2018 Large internal hemorrhoids likely source of bleeding. Otherwise normal colonoscopy to cecum. Normal terminal ileum. Anemia secondary to above. Left renal mass- suspicious for renal cell carcinoma. Gallbladder is moderately distended and demonstrates mild pericholecystic fluid and fat stranding. CBD 8mm- LFT WNL History of high blood pressure. History of diabetes mellitus. History of ethanol abuse. Plan: Gallbladder us- transfuse 1 unit PRBC's- alrady ordered Consider hemorrhoidectomy as likelihood of rebleeding is significant Monitor h/h - transfuse as needed Patient seen in collaboration with Dr. Stevens Subjective: Course reviewed with nursing staff Patient interviewed and examined All labs, imaging and other results reviewed Patient resting in bed, no over night events Pt c/o rectal bleeding yesterday, none today The patient denies upper abdominal pain nausea or vomiting. Continue close observation. Exam PHYSICAL EXAMINATION: GENERAL: Well developed, well nourished, obese, alert & oriented x 3, in no acute distress SKIN: No lesions, no stigmata chronic liver disease, no evidence of bleeding diathesis HEAD: Normocephalic, atraumatic, no tenderness. EYES: Pupils equal reactive to light and accommodation, non-icteric, no discharge. EARS/NOSE AND THROAT: Ears normal, nose normal. NECK: Supple, no masses. CHEST: Inspection within normal limits. CARDIOVASCULAR: Heart: Regular rate and rhythm RESPIRATORY: Lungs clear to auscultation GASTROINTESTINAL AND LIVER: Abdomen: Soft, non tenderness, moderately distended, no hernias, no masses, no organomegaly, no ascites, no guarding, no rebound tenderness, normoactive bowel sounds. Rectal: Fresh blood in the examining glove EXTREMITIES: No cyanosis, clubbing or edema. Result Diagram: 11/25/18 0533 11/25/18 0533 Results 24hrs Laboratory Tests Test 11/24/18 16:47 11/25/18 05:33 11/25/18 08:16 Bedside Glucose 164 173 White Blood Count 13.0 #H Red Blood Count 2.37 L Hemoglobin 7.1 L Hematocrit 22.1 L Mean Corpuscular Volume 93.2 Mean Corpuscular Hemoglobin 30.0 Mean Corpuscular Hemoglobin Concent 32.1 Red Cell Distribution Width 15.5 H Platelet Count 78 #L Mean Platelet Volume 11.7 #H Immature Granulocytes % 1.900 H Neutrophils % 70.5 Lymphocytes % 15.7 Monocytes % 8.9 Eosinophils % 2.5 Basophils % 0.5 Nucleated Red Blood Cells % 7.2 H Immature Granulocytes # 0.250 H Neutrophils # 9.2 H Lymphocytes # 2.0 Monocytes # 1.2 H Eosinophils # 0.3 Basophils # 0.1 Nucleated Red Blood Cells # 0.9 H Sodium Level 137 Potassium Level 3.3 L Chloride Level 109 Carbon Dioxide Level 25 Anion Gap 3 L Blood Urea Nitrogen 11 Creatinine 0.57 L Est Glomerular Filtrat Rate mL/min > 60 Glucose Level 137 # Calcium Level 6.6 L Exam/Review of Systems Exam Vitals Vital Signs Date Temp Pulse Resp B/P (MAP) Pulse Ox O2 O2 Flow FiO2 Time Delivery Rate 11/25/18 74 08:00 11/25/18 98.0 20 122/60 95 Room Air 07:19 (80) 11/24/18 10.0 17:15 Intake and Output 11/24/18 11/24/18 11/25/18 1515:00 23:00 07:00 IntakeIntake Total 675 ml 1275 ml 200 ml OutputOutput Total 500 ml 600 ml BalanceBalance 175 ml 1275 ml -400 ml Results Results 24hrs Laboratory Tests Test 11/24/18 16:47 11/25/18 05:33 11/25/18 08:16 Bedside Glucose 164 173 White Blood Count 13.0 #H Red Blood Count 2.37 L Hemoglobin 7.1 L Hematocrit 22.1 L Mean Corpuscular Volume 93.2 Mean Corpuscular Hemoglobin 30.0 Mean Corpuscular Hemoglobin Concent 32.1 Red Cell Distribution Width 15.5 H Platelet Count 78 #L Mean Platelet Volume 11.7 #H Immature Granulocytes % 1.900 H Neutrophils % 70.5 Lymphocytes % 15.7 Monocytes % 8.9 Eosinophils % 2.5 Basophils % 0.5 Nucleated Red Blood Cells % 7.2 H Immature Granulocytes # 0.250 H Neutrophils # 9.2 H Lymphocytes # 2.0 Monocytes # 1.2 H Eosinophils # 0.3 Basophils # 0.1 Nucleated Red Blood Cells # 0.9 H Sodium Level 137 Potassium Level 3.3 L Chloride Level 109 Carbon Dioxide Level 25 Anion Gap 3 L Blood Urea Nitrogen 11 Creatinine 0.57 L Est Glomerular Filtrat Rate mL/min > 60 Glucose Level 137 # Calcium Level 6.6 L Medications Medication Current Medications IV Flush (NS 3 ml) 3 ml PER PROTOCOL IV ; Start 11/22/18 at 18:30 Acetaminophen (Tylenol Tab) 650 mg Q6H PRN PO .PAIN 1-3 OR TEMP; Start 11/22/18 at 18:30 Acetaminophen/ Hydrocodone Bitart ([place] (5/325)) 1 tab Q6H PRN PO .MOD PAIN 4- 6; Start 11/22/18 at 18:30 Morphine Sulfate (morphine) 2 mg Q4H PRN IV .SEVERE PAIN 7-10; Start 11/22/18 at 18:30 Docusate Sodium (Colace) 100 mg Q12H PRN PO .CONSTIPATION; Start 11/22/18 at 18:30 Magnesium Hydroxide (Milk Of Mag) 30 ml DAILY PRN PO .CONSTIPATION; Start 11/22/18 at 18:30 Lorazepam (Ativan) 0.5 mg Q6H PRN IV ANXIETY; Start 11/22/18 at 18:30 Albuterol/ Ipratropium (Duoneb) 3 ml Q4H RESP THERAPY PRN HHN SHORTNESS OF [place] TH; Start 11/22/18 at 18:30 Hydralazine HCl (Apresoline) 10 mg Q6H PRN IV ELEVATED BLOOD PRESSURE; Start 11/22/18 at 18:30 Nitroglycerin (Nitroglycerin (Sl Tab) 0.4 Mg) 1 tab Q5M PRN SL ANGINA; Start 11/22/18 at 18:30 Famotidine (Pepcid Iv) 20 mg BID IV Last administered on 11/25/18at 08:17; Admin Dose 20 MG; Start 11/22/18 at 23:30 Insulin Aspart (Novolog Insulin Pen) NOVOLOG *MILD* ALGORITHM WITH MEALS BEDTIME SC Last administered on 11/25/18at 08:22; Admin Dose 1 UNIT; Start 11/25/18 at 07:35 Diagnostic Test (Pha) (Accu-Chek) 1 ea AC MEALS AND BEDTIME XX Last administered on 11/25/18at 08:17; Admin Dose 1 EA; Start 11/25/18 at 07:05 Miscellaneous Information 1 ea NOTE XX ; Start 11/24/18 at 21:30 Glucose (Glutose) 15 gm Q15M PRN PO DECREASED GLUCOSE; Start 11/24/18 at 21:30 Glucose (Glutose) 22.5 gm Q15M PRN PO DECREASED GLUCOSE; Start 11/24/18 at 21:30 Dextrose (D50w Syringe) 25 ml Q15M PRN IV DECREASED GLUCOSE; Start 11/24/18 at 21:30 Dextrose (D50w Syringe) 50 ml Q15M PRN IV DECREASED GLUCOSE; Start 11/24/18 at 21:30 Glucagon (Glucagen) 1 mg Q15M PRN IM DECREASED GLUCOSE; Start 11/24/18 at 21:30 Glucose (Glutose) 15 gm Q15M PRN BUCCAL DECREASED GLUCOSE; Start 11/24/18 at 21:30 GONZALO TUTTLE Nov 25, 2018 11:01
[2018-11-25] MEDS ORDERED: POTASSIUM CHLORIDE (SR) 20 MEQ TAB PO STA (14:34)
--- NOTE | 2018-11-25 14:46 | PN ---
Date/Time of Note Date/Time of Note DATE: 11/25/18 TIME: 14:42 Assessment/Plan VTE Prophylaxis Risk score (from Ns)>0 risk: 1 SCD applied (from Ns): Yes Pharmacological prophylaxis: NA/contraindicated Pharm contraindication: bleeding Lines/Catheters IV C[facility]ter Type [facility]from [facility] Saline Lock Urinary Cath still in place: No Assessment/Plan Hospital Course S: Patient had repeat EGD and colonoscopy performed yesterday and per nursing staff not having any upper or lower GI bleeding presently. Seen by heme-onc team yesterday as well. Presently getting 2 more units of PRBC transfusion. O: VS - see below PHYSICAL EXAMINATION: GENERAL: lying in bed, answering questions appropriately HEENT: Pupils are equal, round, reactive to light. Extraocular muscles intact. NECK: Supple, no thyromegaly. LUNGS: Clear to auscultation bilaterally CARDIOVASCULAR: S1, S2 heard. No rubs or gallops. ABDOMEN: Soft, nontender, nondistended. Normal bowel sounds. No rebound or guarding. MUSCULOSKELETAL: No lower extremity edema bilaterally. NEUROLOGIC: No focal deficits. A. Date/Time of Note Date/Time of Note DATE: 11/22/18 TIME: 22:41 Proc Note GI Indication: diagnostic, treatment Pre-procedure Diagnosis GI bleeding/hematochezia Post-procedure Diagnosis Impression: Poorly prepared colon. Moderate amounts of blood throughout the colon. No active bleeding present. No potential bleeding site identified. No evidence of diverticular disease of significance. Moderate to large internal hemorrhoids with no evidence of bleeding. Cecum poorly visualized due to retained material. B. EGD 11/24/2018 Normal EGD. No bleeding site or potential bleeding site identified to the third portion of the duodenum Colonoscopy 11/24/2018 Large internal hemorrhoids likely source of bleeding. Otherwise normal colonoscopy to cecum. Normal terminal ileum. C. CT scan abdomen pelvis with and without contrast: IMPRESSION: 1. No evidence of intra-abdominal hemorrhage. 2. Exophytic enhancing 1.3 cm lesion arising from the low to interpolar segment of left kidney suspicious for renal cell carcinoma. 3. Gallbladder is moderately distended and demonstrates mild pericholecystic fluid and fat stranding. No wall thickening or cholelithiasis. Consider right upper quadrant ultrasound for further evaluation regarding acute cholecystitis. 4. CBD is mildly dilated and measures 8 mm. If there is clinical concern for choledocholithiasis further evaluation with MRCP will be modality of choice. 5. Mild hepatomegaly. 6. Scattered colonic diverticulosis. ASSESSMENT AND PLAN: 58-year-old male, coming in with signs of possible hypovolemic shock after presenting with hypotension, tachycardia, signs of severe anemia, and lower gastrointestinal bleeding. 1. Severe anemia with GI bleeding/possible hypovolemic shock. Again, status post 7 units total of PRBC transfusion. Emergent colonoscopy performed yester day but prep was not able to be administered, no bleeding site identified. -continue H2-jose angel IV twice daily -Follow-up final results/delayed imaging results of nuclear bleeding scan test -Continue IV fluid hydration as well -Per GI recognitions, recommending hemorrhoidectomy given the likely source of the patient's bleeding on admission as internal hemorrhoids. Consider surgery consult for that. -Appreciate hematology oncology rec's, will follow up with the MRI and CT chest for further evaluation of a possible renal cell carcinoma/mass 2. Hypertension-stable now after being hypotensive on admission. -Monitor for now, continue IV fluids -Still holding home blood pressure medicines 3. Diabetes-A1c 6.6 -Monitor sugars, continue sliding scale insulin Result Diagram: 11/25/18 0533 11/25/18 0533 Results 24hrs Laboratory Tests Test 11/24/18 16:47 11/25/18 05:33 11/25/18 08:16 11/25/18 11:50 Bedside Glucose 164 173 168 White Blood Count 13.0 #H Red Blood Count 2.37 L Hemoglobin 7.1 L Hematocrit 22.1 L Mean Corpuscular 93.2 Volume Mean Corpuscular 30.0 Hemoglobin Mean Corpuscular 32.1 Hemoglobin Concent Red Cell 15.5 H Distribution Width Platelet Count 78 #L Mean Platelet Volume 11.7 #H Immature 1.900 H Granulocytes % Neutrophils % 70.5 Lymphocytes % 15.7 Monocytes % 8.9 Eosinophils % 2.5 Basophils % 0.5 Nucleated Red Blood 7.2 H Cells % Immature 0.250 H Granulocytes # Neutrophils # 9.2 H Lymphocytes # 2.0 Monocytes # 1.2 H Eosinophils # 0.3 Basophils # 0.1 Nucleated Red Blood 0.9 H Cells # Sodium Level 137 Potassium Level 3.3 L Chloride Level 109 Carbon Dioxide Level 25 Anion Gap 3 L Blood Urea Nitrogen 11 Creatinine 0.57 L Est Glomerular > 60 Filtrat Rate mL/min Glucose Level 137 # Calcium Level 6.6 L Exam/Review of Systems Exam Vitals Vital Signs Date Temp Pulse Resp B/P (MAP) Pulse Ox O2 O2 Flow FiO2 Time Delivery Rate 11/25/18 63 12:00 11/25/18 98.0 20 119/68 96 Room Air 11:19 (85) 11/24/18 10.0 17:15 Intake and Output 11/24/18 11/24/18 11/25/18 1515:00 23:00 07:00 IntakeIntake Total 675 ml 1275 ml 200 ml OutputOutput Total 500 ml 600 ml BalanceBalance 175 ml 1275 ml -400 ml Results Results 24hrs Laboratory Tests Test 11/24/18 16:47 11/25/18 05:33 11/25/18 08:16 11/25/18 11:50 Bedside Glucose 164 173 168 White Blood Count 13.0 #H Red Blood Count 2.37 L Hemoglobin 7.1 L Hematocrit 22.1 L Mean Corpuscular 93.2 Volume Mean Corpuscular 30.0 Hemoglobin Mean Corpuscular 32.1 Hemoglobin Concent Red Cell 15.5 H Distribution Width Platelet Count 78 #L Mean Platelet Volume 11.7 #H Immature 1.900 H Granulocytes % Neutrophils % 70.5 Lymphocytes % 15.7 Monocytes % 8.9 Eosinophils % 2.5 Basophils % 0.5 Nucleated Red Blood 7.2 H Cells % Immature 0.250 H Granulocytes # Neutrophils # 9.2 H Lymphocytes # 2.0 Monocytes # 1.2 H Eosinophils # 0.3 Basophils # 0.1 Nucleated Red Blood 0.9 H Cells # Sodium Level 137 Potassium Level 3.3 L Chloride Level 109 Carbon Dioxide Level 25 Anion Gap 3 L Blood Urea Nitrogen 11 Creatinine 0.57 L Est Glomerular > 60 Filtrat Rate mL/min Glucose Level 137 # Calcium Level 6.6 L Medications Medication Current Medications IV Flush (NS 3 ml) 3 ml PER PROTOCOL IV ; Start 11/22/18 at 18:30 Acetaminophen (Tylenol Tab) 650 mg Q6H PRN PO .PAIN 1-3 OR TEMP; Start 11/22/18 at 18:30 Acetaminophen/ Hydrocodone Bitart ([place] (5/325)) 1 tab Q6H PRN PO .MOD PAIN 4- 6; Start 11/22/18 at 18:30 Morphine Sulfate (morphine) 2 mg Q4H PRN IV .SEVERE PAIN 7-10; Start 11/22/18 at 18:30 Docusate Sodium (Colace) 100 mg Q12H PRN PO .CONSTIPATION; Start 11/22/18 at 18:30 Magnesium Hydroxide (Milk Of Mag) 30 ml DAILY PRN PO .CONSTIPATION; Start 11/22/18 at 18:30 Lorazepam (Ativan) 0.5 mg Q6H PRN IV ANXIETY; Start 11/22/18 at 18:30 Albuterol/ Ipratropium (Duoneb) 3 ml Q4H RESP THERAPY PRN HHN SHORTNESS OF BREATH; Start 11/22/18 at 18:30 Hydralazine HCl (Apresoline) 10 mg Q6H PRN IV ELEVATED BLOOD PRESSURE; Start 11/22/18 at 18:30 Nitroglycerin (Nitroglycerin (Sl Tab) 0.4 Mg) 1 tab Q5M PRN SL ANGINA; Start 11/22/18 at 18:30 Insulin Aspart (Novolog Insulin Pen) NOVOLOG *MILD* ALGORITHM WITH MEALS BEDTIME SC Last administered on 11/25/18at 11:55; Admin Dose 1 UNIT; Start at 07:35 Diagnostic Test (Pha) (Accu-Chek) 1 ea AC MEALS AND BEDTIME XX Last administered on 11/25/18at 11:39; Admin Dose 1 EA; Start 11/25/18 at 07:05 Miscellaneous Information 1 ea NOTE XX ; Start 11/24/18 at 21:30 Glucose (Glutose) 15 gm Q15M PRN PO DECREASED GLUCOSE; Start 11/24/18 at 21:30 Glucose (Glutose) 22.5 gm Q15M PRN PO DECREASED GLUCOSE; Start 11/24/18 at 21:30 Dextrose (D50w Syringe) 25 ml Q15M PRN IV DECREASED GLUCOSE; Start 11/24/18 at 21:30 Dextrose (D50w Syringe) 50 ml Q15M PRN IV DECREASED GLUCOSE; Start 11/24/18 at 21:30 Glucagon (Glucagen) 1 mg Q15M PRN IM DECREASED GLUCOSE; Start 11/24/18 at 21:30 Glucose (Glutose) 15 gm Q15M PRN BUCCAL DECREASED GLUCOSE; Start 11/24/18 at 21:30 Psyllium Hydrophilic Mucilloid (Metamucil) 1 pkt DAILY PO ; Start 11/26/18 at 09:00 Famotidine (Pepcid) 20 mg DAILY PO ; Start 11/26/18 at 09:00 FRANCISCO RODRÍGUEZ Nov 25, 2018 14:45
[2018-11-25] MEDS: PE/SHARK OIL/MO/PETROL 30 GM OINT PR SCH (22:24)
[2018-11-26] VITALS (13 sets, daily range): BP systolic 132–176; BP diastolic 66–82; PULSE 62–88; RESP 18–20
[2018-11-26] MEDS: ACCU-CHEK XX SCH ×4 (07:25→20:50)
[2018-11-26] MEDS: FAMOTIDINE 20 MG TAB PO SCH (08:31)
[2018-11-26] MEDS: PSYLLIUM 28% PACKET PO SCH (08:31)
[2018-11-26] MEDS: INSULIN ASPART [NOVOLOG] 3 ML PEN SC SCH ×4 (08:34→20:45)
--- NOTE | 2018-11-26 09:45 | CONS ---
Assessment/Plan Assessment/Plan Assessment/Plan (Daily) Lower GI bleed of unknown certain etiology Favor diverticular bleed and then bleed from hemorrhoids Discussed this in detail with the patient. If patient rebleeds, would repeat bleeding scan to determine source of bleed. If no active source is found at that time, possibly consider hemorrhoidectomy However, patient had moderate blood throughout colon. This is extremely unlikely from an internal hemorrhoidal bleed. Okay to discharge from surgical perspective Consultation Date/Type/Reason Admit Date/Time Nov 22, 2018 at 18:36 Date/Time of Note DATE: 11/26/18 TIME: 09:41 Hx of Present Illness The patient is a 58-year-old male with past medical history of diabetes, hypertension, who scented to the ER a few days ago with weakness and dizziness. Patient had these symptoms for the past few days. He did notice some dark stools as well. He also noticed some bright red blood per rectum. He presented to the ER hypotensive and tachycardic. He was diagnosed with a lower GI bleed. Colonoscopy revealed moderate blood throughout the colon. There was no obvious source of bleed. He did have some internal hemorrhoids and I was asked to evaluate this is a source of bleed. Past Medical History Medical History: diabetes, hypertension Home Meds Reported Medications Multivit-Min/FA/Lycopen/Lutein (Men 50 Plus Multivitamin Tab) 1 Each Tablet, 1 EACH PO DAILY, TAB 11/22/18 Hydrochlorothiazide* (Hydrochlorothiazide*) 12.5 Mg Tablet, 12.5 MG PO DAILY, #30 TAB 11/22/18 Lisinopril* (Lisinopril*) 20 Mg Tablet, 20 MG PO DAILY, #30 TAB 11/22/18 [place]-3 Fatty Acids/Fish Oil (Fish Oil 1,000 mg Capsule) 1 Each Capsule, 1 EACH PO DAILY, CAP 11/22/18 Aspirin* (Aspirin* EC) 81 Mg Tablet.dr, 81 MG PO DAILY, TAB 11/22/18 Metformin Hcl* (Metformin Hcl*) 500 Mg Tablet, 500 MG PO WITH BREAKFAST DINNE, #60 TAB 11/22/18 Medications Current Medications IV Flush (NS 3 ml) 3 ml PER PROTOCOL IV ; Start 11/22/18 at 18:30 Acetaminophen (Tylenol Tab) 650 mg Q6H PRN PO .PAIN 1-3 OR TEMP; Start 11/22/18 at 18:30 Acetaminophen/ Hydrocodone Bitart ([place] (5/325)) 1 tab Q6H PRN PO .MOD PAIN 4- 6; Start 11/22/18 at 18:30 Morphine Sulfate (morphine) 2 mg Q4H PRN IV .SEVERE PAIN 7-10; Start 11/22/18 at 18:30 Docusate Sodium (Colace) 100 mg Q12H PRN PO .CONSTIPATION; Start 11/22/18 at 18:30 Magnesium Hydroxide (Milk Of Mag) 30 ml DAILY PRN PO .CONSTIPATION; Start 11/22/18 at 18:30 Lorazepam (Ativan) 0.5 mg Q6H PRN IV ANXIETY; Start 11/22/18 at 18:30 Albuterol/ Ipratropium (Duoneb) 3 ml Q4H RESP THERAPY PRN HHN SHORTNESS OF BREATH; Start 11/22/18 at 18:30 Hydralazine HCl (Apresoline) 10 mg Q6H PRN IV ELEVATED BLOOD PRESSURE; Start 11/22/18 at 18:30 Nitroglycerin (Nitroglycerin (Sl Tab) 0.4 Mg) 1 tab Q5M PRN SL ANGINA; Start 11/22/18 at 18:30 Insulin Aspart (Novolog Insulin Pen) NOVOLOG *MILD* ALGORITHM WITH MEALS BEDTIME SC Last administered on 11/26/18at 08:34; Admin Dose 2 UNIT; Start 11/25/18 at 07:35 Diagnostic Test (Pha) (Accu-Chek) 1 ea AC MEALS AND BEDTIME XX Last administered on 11/26/18at 07:25; Admin Dose 1 EA; Start 11/25/18 at 07:05 Miscellaneous Information 1 ea NOTE XX ; Start 11/24/18 at 21:30 Glucose (Glutose) 15 gm Q15M PRN PO DECREASED GLUCOSE; Start 11/24/18 at 21:30 Glucose (Glutose) 22.5 gm Q15M PRN PO DECREASED GLUCOSE; Start 11/24/18 at 21:30 Dextrose (D50w Syringe) 25 ml Q15M PRN IV DECREASED GLUCOSE; Start 11/24/18 at 21:30 Dextrose (D50w Syringe) 50 ml Q15M PRN IV DECREASED GLUCOSE; Start 11/24/18 at 21:30 Glucagon (Glucagen) 1 mg Q15M PRN IM DECREASED GLUCOSE; Start 11/24/18 at 21:30 Glucose (Glutose) 15 gm Q15M PRN BUCCAL DECREASED GLUCOSE; Start 11/24/18 at 2 1:30 Psyllium Hydrophilic Mucilloid (Metamucil) 1 pkt DAILY PO Last administered on 11/26/18at 08:31; Admin Dose 1 PKT; Start 11/26/18 at 09:00 Famotidine (Pepcid) 20 mg DAILY PO Last administered on 11/26/18at 08:31; Admin Dose 20 MG; Start 11/26/18 at 09:00 Phenyleph/Shark Oil/Min Oil/Petrol (Formulation R Oint) 1 applic QHS SD Last administered on 11/25/18at 22:24; Admin Dose 1 APPLIC; Start 11/25/18 at 21:00 Allergies: Coded Allergies: No Known Allergy (Unverified , 11/22/18) Past Surgical History Past Surgical Hx: no surgical history Family History Significant Family History: no pertinent family hx Social History Alcohol Use: other (Moderate) Smoking Status: Never smoker Drug Use: none Exam/Review of Systems Exam Vitals Vital Signs Date Temp Pulse Resp B/P (MAP) Pulse Ox O2 O2 Flow FiO2 Time Delivery Rate 11/26/18 81 08:00 11/26/18 98.0 20 160/82 98 07:43 (108) 11/25/18 Room Air 15:20 11/24/18 10.0 17:15 Intake and Output 11/25/18 11/25/18 11/26/18 1515:00 23:00 07:00 IntakeIntake Total 1150 ml 250 ml OutputOutput Total 600 ml 800 ml 600 ml BalanceBalance -600 ml 350 ml -350 ml Constitutional: alert, oriented, well developed Psych: no complaints Eyes: nl conjunctiva ENMT: nl external ears & nose, nl lips & teeth, nl nasal mucosa & septum Neck: supple, non-tender Respiratory: clear to auscultation, normal air movement Cardiovascular: regular rate and rhythm, nl pulses Gastrointestinal: soft, nl liver, spleen, non-tender Extremities: normal pulses Neurological: [employer] II-XII intact, nl mental status, nl speech Skin: nl turgor Lymph: nl lymph nodes Results Result Diagram: 11/26/1835 11/26/18 0535 Results 24hrs Laboratory Tests Test 11/25/18 11:50 11/25/18 17:01 11/25/18 21:46 11/26/18 05:35 Bedside Glucose 168 139 149 White Blood Count 10.7 Red Blood Count 3.20 #L Hemoglobin 9.4 #L Hematocrit 28.3 #L Mean Corpuscular 88.4 Volume Mean Corpuscular 29.4 Hemoglobin Mean Corpuscular 33.2 Hemoglobin Concent Red Cell 15.0 H Distribution Width Platelet Count 141 # Mean Platelet Volume 9.7 Immature 1.300 H Granulocytes % Neutrophils % 74.9 Lymphocytes % 11.9 L Monocytes % 8.4 Eosinophils % 2.9 Basophils % 0.6 Nucleated Red Blood 3.0 H Cells % Immature 0.140 H Granulocytes # Neutrophils # 8.0 H Lymphocytes # 1.3 Monocytes # 0.9 Eosinophils # 0.3 Basophils # 0.1 Nucleated Red Blood 0.3 H Cells # Sodium Level 137 Potassium Level 3.2 L Chloride Level 104 Carbon Dioxide Level 27 Anion Gap 6 Blood Urea Nitrogen 11 Creatinine 0.60 L Est Glomerular > 60 Filtrat Rate mL/min Glucose Level 148 Calcium Level 7.4 L Phosphorus Level 3.2 Magnesium Level 2.1 Total Bilirubin 0.5 Direct Bilirubin 0.00 Indirect Bilirubin 0.5 Aspartate Amino 38 Transf (AST/SGOT) Alanine 46 Aminotransferase (AL T/SGPT) Alkaline Phosphatase 48 Total Protein 4.4 L Albumin 2.5 L Test 11/26/18 08:30 Bedside Glucose 204 Imaging Imaging Patient: LIMA MULLEN : 1960 Age: 58 Sex: M MR #: [id number] DOS: 11/23/18 1000 Ordering MD: KHUSHBOO MORGAN MD Location: ICU Room/Bed: [facility] PROCEDURE: CT Abdomen and Pelvis without and with contrast. CLINICAL INDICATION: Evaluate for bleeding. TECHNIQUE: CT scan of the abdomen and pelvis without and with contrast was performed on a multi-detector high-resolution CT scanner. The patient was scanned before and following the uncomplicated intravenous administration of 100 cc of Omnipaque 300 IV contrast. Coronal and sagittal reformatted images were obtained from the axial source images. DICOM images are available. CTDI equals 27.27 mGy, and DLP equals 1641.2 mGy-cm. One or more of the following dose reduction techniques were used: - Automated exposure control. - Adjustment of the mA and/or kV according to patient size. - Use of iterative reconstruction technique. COMPARISON: None. FINDINGS: Lower thorax: Lung bases are unremarkable. Heart normal in size. Marked coronary artery calcifications. Liver: Liver is mildly enlarged. Right liver lobe measures 19.5 cm in crani ocaudal dimension. No suspicious liver lesion. Patent portal vein. Biliary: Gallbladder is moderately distended and demonstrates mild pericholecystic fat stranding. There is no wall thickening or cholelithiasis. No intrahepatic biliary ductal dilation. CBD is mildly dilated and measures 8 mm. Pancreas: Normal. Spleen: Normal. Adrenal Glands: Normal. Genitourinary: Symmetric perfusion of kidneys with no hydronephrosis. There is an enhancing 1.3 cm exophytic lesion arising from lower to interpolar segment of left kidney suspicious for renal cell carcinoma. 1 cm exophytic benign appearing cyst arising from lower pole of right kidney. Bladder is moderately distended and unremarkable. Gastrointestinal: Nasogastric tube tip terminates in the body of the stomach. There is mild patulous appearance of the visualized distal esophagus. Stomach is relatively decompressed. Small and large bowel with normal caliber. Normal appendix. Scattered colonic diverticulosis. Lymph nodes: No adenopathy. Vascular: Normal-caliber of the moderately calcified abdominal aorta. Peritoneum/mesentery: No ascites or free air. Reproductive organs: Normal. Musculoskeletal: Normal. Abdominal wall: Degenerative changes of the lumbar spine more prominent at the level of L4-L5. There is posterior disc bulging at the same level resulting in mild canal stenosis. IMPRESSION: 1. No evidence of intra-abdominal hemorrhage. 2. Exophytic enhancing 1.3 cm lesion arising from the low to interpolar segment of left kidney suspicious for renal cell carcinoma. 3. Gallbladder is moderately distended and demonstrates mild pericholecystic fluid and fat stranding. No wall thickening or cholelithiasis. Consider right upper quadrant ultrasound for further evaluation regarding acute cholecystitis. 4. CBD is mildly dilated and measures 8 mm. If there is clinical concern for choledocholithiasis further evaluation with MRCP will be modality of choice. 5. Mild hepatomegaly. 6. Scattered colonic diverticulosis. Medications Medication Current Medications IV Flush (NS 3 ml) 3 ml PER PROTOCOL IV ; Start 11/22/18 at 18:30 Acetaminophen (Tylenol Tab) 650 mg Q6H PRN PO .PAIN 1-3 OR TEMP; Start 11/22/18 at 18:30 Acetaminophen/ Hydrocodone Bitart ([place] (5/325)) 1 tab Q6H PRN PO .MOD PAIN 4- 6; Start 11/22/18 at 18:30 Morphine Sulfate (morphine) 2 mg Q4H PRN IV .SEVERE PAIN 7-10; Start 11/22/18 at 18:30 Docusate Sodium (Colace) 100 mg Q12H PRN PO .CONSTIPATION; Start 11/22/18 at 18:30 Magnesium Hydroxide (Milk Of Mag) 30 ml DAILY PRN PO .CONSTIPATION; Start 11/22/18 at 18:30 Lorazepam (Ativan) 0.5 mg Q6H PRN IV ANXIETY; Start 11/22/18 at 18:30 Albuterol/ Ipratropium (Duoneb) 3 ml Q4H RESP THERAPY PRN HHN SHORTNESS OF BREATH; Start 11/22/18 at 18:30 Hydralazine HCl (Apresoline) 10 mg Q6H PRN IV ELEVATED BLOOD PRESSURE; Start 11/22/18 at 18:30 Nitroglycerin (Nitroglycerin (Sl Tab) 0.4 Mg) 1 tab Q5M PRN SL ANGINA; Start 11/22/18 at 18:30 Insulin Aspart (Novolog Insulin Pen) NOVOLOG *MILD* ALGORITHM WITH MEALS BEDTIME SC Last administered on 11/26/18at 08:34; Admin Dose 2 UNIT; Start 11/25/18 at 07:35 Diagnostic Test (Pha) (Accu-Chek) 1 ea AC MEALS AND BEDTIME XX Last administered on 11/26/18at 07:25; Admin Dose 1 EA; Start 11/25/18 at 07:05 Miscellaneous Information 1 ea NOTE XX ; Start 11/24/18 at 21:30 Glucose (Glutose) 15 gm Q15M PRN PO DECREASED GLUCOSE; Start 11/24/18 at 21:30 Glucose (Glutose) 22.5 gm Q15M PRN PO DECREASED GLUCOSE; Start 11/24/18 at 21:30 Dextrose (D50w Syringe) 25 ml Q15M PRN IV DECREASED GLUCOSE; Start 11/24/18 at 21:30 Dextrose (D50w Syringe) 50 ml Q15M PRN IV DECREASED GLUCOSE; Start 11/24/18 at 21:30 Glucagon (Glucagen) 1 mg Q15M PRN IM DECREASED GLUCOSE; Start 11/24/18 at 21:30 Glucose (Glutose) 15 gm Q15M PRN BUCCAL DECREASED GLUCOSE; Start 11/24/18 at 21:30 Psyllium Hydrophilic Mucilloid (Metamucil) 1 pkt DAILY PO Last administered on 11/26/18at 08:31; Admin Dose 1 PKT; Start 11/26/18 at 09:00 Famotidine (Pepcid) 20 mg DAILY PO Last administered on 11/26/18at 08:31; Admin Dose 20 MG; Start 11/26/18 at 09:00 Phenyleph/Shark Oil/Min Oil/Petrol (Formulation R Oint) 1 applic QHS SD Last administered on 11/25/18at 22:24; Admin Dose 1 APPLIC; Start 11/25/18 at 21:00 YOGESH HOYOS MD Nov 26, 2018 09:45
[2018-11-26] MEDS ORDERED: POTASSIUM CHLORIDE (SR) 20 MEQ TAB PO STA (10:42)
--- NOTE | 2018-11-26 11:28 | PN ---
Date/Time of Note Date/Time of Note DATE: 11/26/18 TIME: 11:26 Assessment/Plan VTE Prophylaxis Risk score (from Ns)>0 risk: 1 SCD applied (from Ns): Yes Pharmacological prophylaxis: NA/contraindicated Pharm contraindication: bleeding Lines/Catheters [facility]from [facility] Saline Lock Urinary Cath still in place: No Assessment/Plan Hospital Course S: Patient per nursing staff had no further episodes of GI bleeding noted overnight. Received 2 units PRBC transfusion with improvement hemoglobin today. Evaluated by surgery team as well. Complaining of some lower externally swelling. O: VS - see below PHYSICAL EXAMINATION: GENERAL: lying in bed, answering questions appropriately HEENT: Pupils are equal, round, reactive to light. Extraocular muscles intact. NECK: Supple, no thyromegaly. LUNGS: Clear to auscultation bilaterally CARDIOVASCULAR: S1, S2 heard. No rubs or gallops. ABDOMEN: Soft, nontender, nondistended. Normal bowel sounds. No rebound or guarding. MUSCULOSKELETAL: Trace pitting edema bilateral lower extremity to the mid calves NEUROLOGIC: No focal deficits. A. Date/Time of Note Date/Time of Note DATE: 11/22/18 TIME: 22:41 Proc Note GI Indication: diagnostic, treatment Pre-procedure Diagnosis GI bleeding/hematochezia Post-procedure Diagnosis Impression: Poorly prepared colon. Moderate amounts of blood throughout the colon. No active bleeding present. No potential bleeding site identified. No evidence of diverticular disease of significance. Moderate to large internal hemorrhoids with no evidence of bleeding. Cecum poorly visualized due to retained material. B. EGD 11/24/2018 Normal EGD. No bleeding site or potential bleeding site identified to the third portion of the duodenum Colonoscopy 11/24/2018 Large internal hemorrhoids likely source of bleeding. Otherwise normal colonoscopy to cecum. Normal terminal ileum. C. CT scan abdomen pelvis with and without contrast: IMPRESSION: 1. No evidence of intra-abdominal hemorrhage. 2. Exophytic enhancing 1.3 cm lesion arising from the low to interpolar segment of left kidney suspicious for renal cell carcinoma. 3. Gallbladder is moderately distended and demonstrates mild pericholecystic fl uid and fat stranding. No wall thickening or cholelithiasis. Consider right upper quadrant ultrasound for further evaluation regarding acute cholecystitis. 4. CBD is mildly dilated and measures 8 mm. If there is clinical concern for choledocholithiasis further evaluation with MRCP will be modality of choice. 5. Mild hepatomegaly. 6. Scattered colonic diverticulosis. ASSESSMENT AND PLAN: 58-year-old male, coming in with signs of possible hypovolemic shock after presenting with hypotension, tachycardia, signs of severe anemia, and lower gastrointestinal bleeding. 1. Severe anemia with GI bleeding/possible hypovolemic shock. Again, status post 9 units total of PRBC transfusion during this admission. Emergent colonoscopy performed on admission, then repeat EGD colonoscopy performed 48 hours ago, results noted above. -continue H2-jose angel IV twice daily -Follow-up final results/delayed imaging results of nuclear bleeding scan test -Continue IV fluid hydration as well -We will continue to monitor for any signs of any lower GI bleeding, there is a concern if the bleeding is actually coming from diverticulosis versus internal hemorrhoid bleeding. Follow further recommendations from GI and surgery team regarding this. -Appreciate hematology oncology rec's, go ahead and get the CT chest as well as the MRI abdomen with and without contrast of both to further evaluate the renal mass and to determine if there is any further spread into the thoracic area in case we are dealing with a cancer here. -We will also check 2D echocardiogram given patient's lower extremity swel ling symptoms. 2. Hypertension-stable now after being hypotensive on admission. -Monitor for now, continue IV fluids -Still holding home blood pressure medicines 3. Diabetes-A1c 6.6 -Monitor sugars, continue sliding scale insulin Result Diagram: 11/26/18 0535 11/26/18 0535 Results 24hrs Laboratory Tests Test 11/25/18 11:50 11/25/18 17:01 11/25/18 21:46 11/26/18 05:35 Bedside Glucose 168 139 149 White Blood Count 10.7 Red Blood Count 3.20 #L Hemoglobin 9.4 #L Hematocrit 28.3 #L Mean Corpuscular 88.4 Volume Mean Corpuscular 29.4 Hemoglobin Mean Corpuscular 33.2 Hemoglobin Concent Red Cell 15.0 H Distribution Width Platelet Count 141 # Mean Platelet Volume 9.7 Immature 1.300 H Granulocytes % Neutrophils % 74.9 Lymphocytes % 11.9 L Monocytes % 8.4 Eosinophils % 2.9 Basophils % 0.6 Nucleated Red Blood 3.0 H Cells % Immature 0.140 H Granulocytes # Neutrophils # 8.0 H Lymphocytes # 1.3 Monocytes # 0.9 Eosinophils # 0.3 Basophils # 0.1 Nucleated Red Blood 0.3 H Cells # Sodium Level 137 Potassium Level 3.2 L Chloride Level 104 Carbon Dioxide Level 27 Anion Gap 6 Blood Urea Nitrogen 11 Creatinine 0.60 L Est Glomerular > 60 Filtrat Rate mL/min Glucose Level 148 Calcium Level 7.4 L Phosphorus Level 3.2 Magnesium Level 2.1 Total Bilirubin 0.5 Direct Bilirubin 0.00 Indirect Bilirubin 0.5 Aspartate Amino 38 Transf (AST/SGOT) Alanine 46 Aminotransferase (AL T/SGPT) Alkaline Phosphatase 48 Total Protein 4.4 L Albumin 2.5 L Test 11/26/18 08:30 Bedside Glucose 204 Exam/Review of Systems Exam Vitals Vital Signs Date Temp Pulse Resp B/P (MAP) Pulse Ox O2 O2 Flow FiO2 Time Delivery Rate 11/26/18 81 08:00 11/26/18 98.0 20 160/82 98 07:43 (108) 11/25/18 Room Air 15:20 11/24/18 10.0 17:15 Intake and Output 11/25/18 11/25/18 11/26/18 1515:00 23:00 07:00 IntakeIntake Total 1150 ml 250 ml OutputOutput Total 600 ml 800 ml 600 ml BalanceBalance -600 ml 350 ml -350 ml Results Results 24hrs Laboratory Tests Test 11/25/18 11:50 11/25/18 17:01 11/25/18 21:46 11/26/18 05:35 Bedside Glucose 168 139 149 White Blood Count 10.7 Red Blood Count 3.20 #L Hemoglobin 9.4 #L Hematocrit 28.3 #L Mean Corpuscular 88.4 Volume Mean Corpuscular 29.4 Hemoglobin Mean Corpuscular 33.2 Hemoglobin Concent Red Cell 15.0 H Distribution Width Platelet Count 141 # Mean Platelet Volume 9.7 Immature 1.300 H Granulocytes % Neutrophils % 74.9 Lymphocytes % 11.9 L Monocytes % 8.4 Eosinophils % 2.9 Basophils % 0.6 Nucleated Red Blood 3.0 H Cells % Immature 0.140 H Granulocytes # Neutrophils # 8.0 H Lymphocytes # 1.3 Monocytes # 0.9 Eosinophils # 0.3 Basophils # 0.1 Nucleated Red Blood 0.3 H Cells # Sodium Level 137 Potassium Level 3.2 L Chloride Level 104 Carbon Dioxide Level 27 Anion Gap 6 Blood Urea Nitrogen 11 Creatinine 0.60 L Est Glomerular > 60 Filtrat Rate mL/min Glucose Level 148 Calcium Level 7.4 L Phosphorus Level 3.2 Magnesium Level 2.1 Total Bilirubin 0.5 Direct Bilirubin 0.00 Indirect Bilirubin 0.5 Aspartate Amino 38 Transf (AST/SGOT) Alanine 46 Aminotransferase (AL T/SGPT) Alkaline Phosphatase 48 Total Protein 4.4 L Albumin 2.5 L Test 11/26/18 08:30 Bedside Glucose 204 Medications Medication Current Medications IV Flush (NS 3 ml) 3 ml PER PROTOCOL IV ; Start 11/22/18 at 18:30 Acetaminophen (Tylenol Tab) 650 mg Q6H PRN PO .PAIN 1-3 OR TEMP; Start 11/22/18 at 18:30 Acetaminophen/ Hydrocodone Bitart ([place] (5/325)) 1 tab Q6H PRN PO .MOD PAIN 4- 6; Start 11/22/18 at 18:30 Morphine Sulfate (morphine) 2 mg Q4H PRN IV .SEVERE PAIN 7-10; Start 11/22/18 at 18:30 Docusate Sodium (Colace) 100 mg Q12H PRN PO .CONSTIPATION; Start 11/22/18 at 1 8:30 Magnesium Hydroxide (Milk Of Mag) 30 ml DAILY PRN PO .CONSTIPATION; Start 11/22/18 at 18:30 Lorazepam (Ativan) 0.5 mg Q6H PRN IV ANXIETY; Start 11/22/18 at 18:30 Albuterol/ Ipratropium (Duoneb) 3 ml Q4H RESP THERAPY PRN HHN SHORTNESS OF BREATH; Start 11/22/18 at 18:30 Hydralazine HCl (Apresoline) 10 mg Q6H PRN IV ELEVATED BLOOD PRESSURE; Start 11/22/18 at 18:30 Nitroglycerin (Nitroglycerin (Sl Tab) 0.4 Mg) 1 tab Q5M PRN SL ANGINA; Start 11/22/18 at 18:30 Insulin Aspart (Novolog Insulin Pen) NOVOLOG *MILD* ALGORITHM WITH MEALS BEDTIME SC Last administered on 11/26/18 08:34; Admin Dose 2 UNIT; Start 11/25/18 at 07:35 Diagnostic Test (Pha) (Accu-Chek) 1 ea AC MEALS AND BEDTIME XX Last administered on 11/26/18at 07:25; Admin Dose 1 EA; Start 11/25/18 at 07:05 Miscellaneous Information 1 ea NOTE XX ; Start 11/24/18 at 21:30 Glucose (Glutose) 15 gm Q15M PRN PO DECREASED GLUCOSE; Start 11/24/18 at 21:30 Glucose (Glutose) 22.5 gm Q15M PRN PO DECREASED GLUCOSE; Start 11/24/18 at 21:30 Dextrose (D50w Syringe) 25 ml Q15M PRN IV DECREASED GLUCOSE; Start 11/24/18 at 21:30 Dextrose (D50w Syringe) 50 ml Q15M PRN IV DECREASED GLUCOSE; Start 11/24/18 at 21:30 Glucagon (Glucagen) 1 mg Q15M PRN IM DECREASED GLUCOSE; Start 11/24/18 at 21:30 Glucose (Glutose) 15 gm Q15M PRN BUCCAL DECREASED GLUCOSE; Start 11/24/18 at 21:30 Psyllium Hydrophilic Mucilloid (Metamucil) 1 pkt DAILY PO Last administered on 11/26/18at 08:31; Admin Dose 1 PKT; Start 11/26/18 at 09:00 Famotidine (Pepcid) 20 mg DAILY PO Last administered on 11/26/18at 08:31; Admin Dose 20 MG; Start 11/26/18 at 09:00 Phenyleph/Shark Oil/Min Oil/Petrol (Formulation R Oint) 1 applic QHS MD Last administered on 11/25/18at 22:24; Admin Dose 1 APPLIC; Start 11/25/18 at 21:00 FRANCISCO RODRÍGUEZ Nov 26, 2018 11:28
--- NOTE | 2018-11-26 14:22 | PN ---
Date/Time of Note Date/Time of Note DATE: 11/26/18 TIME: 14:11 Assessment/Plan VTE Prophylaxis Risk score (from Ns)>0 risk: 1 SCD applied (from Ns): Yes Pharmacological prophylaxis: NA/contraindicated Pharm contraindication: bleeding Lines/Catheters IV [facility]from [facility] Saline Lock Urinary Cath still in place: No Assessment/Plan Hospital Course Impression: GI bleeding likely lower GI bleeding with profuse hematochezia. 11/22/18 Impression: Poorly prepared colon. Moderate amounts of blood throughout the colon. No active bleeding present. No potential bleeding site identified. No evidence of diverticular disease of significance. Moderate to large internal hemorrhoids with no evidence of bleeding. Cecum poorly visualized due to retained material. EGD 11/24/2018 Normal EGD. No bleeding site or potential bleeding site identified to the third portion of the duodenum Colonoscopy 11/24/2018 Large internal hemorrhoids likely source of bleeding. Otherwise normal colonoscopy to cecum. Normal terminal ileum. Anemia secondary to above. Left renal mass- suspicious for renal cell carcinoma. Gallbladder is moderately distended and demonstrates mild pericholecystic fluid and fat stranding.- on CT CBD 8mm- LFT WNL -Gallbladder US- Normal sonographic appearance of the gallbladder History of high blood pressure. History of diabetes mellitus. History of ethanol abuse. Hepatomegaly and fatty infiltration of the liver. Plan: Pt evaluated by surgery- currently no plan for surgical interventions Monitor h/h, transfuse as needed Further imaging ordered to evaluate renal mass Patient seen in collaboration with Dr. Stevens Subjective: Course reviewed with nursing staff Patient interviewed and examined All labs, imaging and other results reviewed Pt appears comfortable. No overt signs of GI bleed HGB stable after blood transfusions. Exam PHYSICAL EXAMINATION: GENERAL: Well developed, well nourished, obese, alert & oriented x 3, in no acute distress SKIN: No lesions HEAD: Normocephalic, atraumatic, no tenderness. EYES: Pupils equal reactive to light and accommodation, non-icteric, no discharge. EARS/NOSE AND THROAT: Ears normal, nose normal. NECK: Supple, no masses. CHEST: Inspection within normal limits. CARDIOVASCULAR: Heart: Regular rate and rhythm RESPIRATORY: Lungs clear to auscultation GASTROINTESTINAL AND LIVER: Abdomen: Soft, non tenderness, moderately distended, no hernias, no masses, no organomegaly, no ascites, no guarding, no rebound tenderness, normoactive bowel sounds. EXTREMITIES: No cyanosis, clubbing or edema. Result Diagram: 11/26/18 0535 11/26/18 0535 Results 24hrs Laboratory Tests Test 11/25/18 17:01 11/25/18 21:46 11/26/18 05:35 11/26/18 08:30 Bedside Glucose 139 149 204 White Blood Count 10.7 Red Blood Count 3.20 #L Hemoglobin 9.4 #L Hematocrit 28.3 #L Mean Corpuscular 88.4 Volume Mean Corpuscular 29.4 Hemoglobin Mean Corpuscular 33.2 Hemoglobin Concent Red Cell 15.0 H Distribution Width Platelet Count 141 # Mean Platelet Volume 9.7 Immature 1.300 H Granulocytes % Neutrophils % 74.9 Lymphocytes % 11.9 L Monocytes % 8.4 Eosinophils % 2.9 Basophils % 0.6 Nucleated Red Blood 3.0 H Cells % Immature 0.140 H Granulocytes # Neutrophils # 8.0 H Lymphocytes # 1.3 Monocytes # 0.9 Eosinophils # 0.3 Basophils # 0.1 Nucleated Red Blood 0.3 H Cells # Sodium Level 137 Potassium Level 3.2 L Chloride Level 104 Carbon Dioxide Level 27 Anion Gap 6 Blood Urea Nitrogen 11 Creatinine 0.60 L Est Glomerular > 60 Filtrat Rate mL/min Glucose Level 148 Calcium Level 7.4 L Phosphorus Level 3.2 Magnesium Level 2.1 Total Bilirubin 0.5 Direct Bilirubin 0.00 Indirect Bilirubin 0.5 Aspartate Amino 38 Transf (AST/SGOT) Alanine 46 Aminotransferase (AL T/SGPT) Alkaline Phosphatase 48 Total Protein 4.4 L Albumin 2.5 L Test 11/26/18 11:49 Bedside Glucose 132 Exam/Review of Systems Exam Vitals Vital Signs Date Temp Pulse Resp B/P (MAP) Pulse Ox O2 O2 Flow FiO2 Time Delivery Rate 11/26/18 98.0 87 18 132/78 98 12:16 (96) 11/25/18 Room Air 15:20 11/24/18 10.0 17:15 Intake and Output 11/25/18 11/25/18 11/26/18 1515:00 23:00 07:00 IntakeIntake Total 1150 ml 250 ml OutputOutput Total 600 ml 800 ml 600 ml BalanceBalance -600 ml 350 ml -350 ml Results Results 24hrs Laboratory Tests Test 11/25/18 17:01 11/25/18 21:46 11/26/18 05:35 11/26/18 08:30 Bedside Glucose 139 149 204 White Blood Count 10.7 Red Blood Count 3.20 #L Hemoglobin 9.4 #L Hematocrit 28.3 #L Mean Corpuscular 88.4 Volume Mean Corpuscular 29.4 Hemoglobin Mean Corpuscular 33.2 Hemoglobin Concent Red Cell 15.0 H Distribution Width Platelet Count 141 # Mean Platelet Volume 9.7 Immature 1.300 H Granulocytes % Neutrophils % 74.9 Lymphocytes % 11.9 L Monocytes % 8.4 Eosinophils % 2.9 Basophils % 0.6 Nucleated Red Blood 3.0 H Cells % Immature 0.140 H Granulocytes # Neutrophils # 8.0 H Lymphocytes # 1.3 Monocytes # 0.9 Eosinophils # 0.3 Basophils # 0.1 Nucleated Red Blood 0.3 H Cells # Sodium Level 137 Potassium Level 3.2 L Chloride Level 104 Carbon Dioxide Level 27 Anion Gap 6 Blood Urea Nitrogen 11 Creatinine 0.60 L Est Glomerular > 60 Filtrat Rate mL/min Glucose Level 148 Calcium Level 7.4 L Phosphorus Level 3.2 Magnesium Level 2.1 Total Bilirubin 0.5 Direct Bilirubin 0.00 Indirect Bilirubin 0.5 Aspartate Amino 38 Transf (AST/SGOT) Alanine 46 Aminotransferase (AL T/SGPT) Alkaline Phosphatase 48 Total Protein 4.4 L Albumin 2.5 L Test 11/26/18 11:49 Bedside Glucose 132 Medications Medication Current Medications IV Flush (NS 3 ml) 3 ml PER PROTOCOL IV ; Start 11/22/18 at 18:30 Acetaminophen (Tylenol Tab) 650 mg Q6H PRN PO .PAIN 1-3 OR TEMP; Start 11/22/18 at 18:30 Acetaminophen/ Hydrocodone Bitart ([place] (5/325)) 1 tab Q6H PRN PO .MOD PAIN 4- 6; Start 11/22/18 at 18:30 Morphine Sulfate (morphine) 2 mg Q4H PRN IV .SEVERE PAIN 7-10; Start 11/22/18 at 18:30 Docusate Sodium (Colace) 100 mg Q12H PRN PO .CONSTIPATION; Start 11/22/18 at 18:30 Magnesium Hydroxide (Milk Of Mag) 30 ml DAILY PRN PO .CONSTIPATION; Start 11/22/18 at 18:30 Lorazepam (Ativan) 0.5 mg Q6H PRN IV ANXIETY; Start 11/22/18 at 18:30 Albuterol/ Ipratropium (Duoneb) 3 ml Q4H RESP THERAPY PRN HHN SHORTNESS OF BREATH; Start 11/22/18 at 18:30 Hydralazine HCl (Apresoline) 10 mg Q6H PRN IV ELEVATED BLOOD PRESSURE; Start 11/22/18 at 18:30 Nitroglycerin (Nitroglycerin (Sl Tab) 0.4 Mg) 1 tab Q5M PRN SL ANGINA; Start 11/22/18 at 18:30 Insulin Aspart (Novolog Insulin Pen) NOVOLOG *MILD* ALGORITHM WITH MEALS BEDTIME SC Last administered on 11/26/18at 08:34; Admin Dose 2 UNIT; Start 11/25/18 at 07:35 Diagnostic Test (Pha) (Accu-Chek) 1 ea AC MEALS AND BEDTIME XX Last administered on 11/26/18at 11:49; Admin Dose 1 EA; Start 11/25/18 at 07:05 Miscellaneous Information 1 ea NOTE XX ; Start 11/24/18 at 21:30 Glucose (Glutose) 15 gm Q15M PRN PO DECREASED GLUCOSE; Start 11/24/18 at 21:30 Glucose (Glutose) 22.5 gm Q15M PRN PO DECREASED GLUCOSE; Start 11/24/18 at 21:30 Dextrose (D50w Syringe) 25 ml Q15M PRN IV DECREASED GLUCOSE; Start 11/24/18 at 21:30 Dextrose (D50w Syringe) 50 ml Q15M PRN IV DECREASED GLUCOSE; Start 11/24/18 at 21:30 Glucagon (Glucagen) 1 mg Q15M PRN IM DECREASED GLUCOSE; Start 11/24/18 at 21:30 Glucose (Glutose) 15 gm Q15M PRN BUCCAL DECREASED GLUCOSE; Start 11/24/18 at 21:30 Psyllium Hydrophilic Mucilloid (Metamucil) 1 pkt DAILY PO Last administered on 11/26/18at 08:31; Admin Dose 1 PKT; Start 11/26/18 at 09:00 Famotidine (Pepcid) 20 mg DAILY PO Last administered on 11/26/18at 08:31; Admin Dose 20 MG; Start 11/26/18 at 09:00 Phenyleph/Shark Oil/Min Oil/Petrol (Formulation R Oint) 1 applic QHS [place] Last administered on 11/25/18at 22:24; Admin Dose 1 APPLIC; Start 11/25/18 at 21:00 GONZALO TUTTLE Nov 26, 2018 14:21
[2018-11-26] MEDS ORDERED: SOD CHLORIDE 0.9% 100 ML ONE (18:16)
[2018-11-26] MEDS ORDERED: IOHEXOL 300MG/ML 150 ML BTL ONE (18:16)
[2018-11-26] MEDS: PE/SHARK OIL/MO/PETROL 30 GM OINT PR SCH (20:46)
[2018-11-27] VITALS (8 sets, daily range): BP systolic 132–175; BP diastolic 67–84; PULSE 60–80; RESP 18–19
[2018-11-27] MEDS: ACCU-CHEK XX SCH ×2 (07:25→12:17)
[2018-11-27] MEDS: INSULIN ASPART [NOVOLOG] 3 ML PEN SC SCH ×2 (07:59→11:50)
[2018-11-27] MEDS: PSYLLIUM 28% PACKET PO SCH (09:00)
[2018-11-27] MEDS: FAMOTIDINE 20 MG TAB PO SCH (09:04)
--- NOTE | 2018-11-27 11:15 | PDOCDIS ---
Discharge Instructions DIAGNOSIS Discharge Diagnosis Lower GI bleed CONDITION [id number] Patient Condition: [id number] Good HOME CARE INSTRUCTIONS: [id number] Diet Instructions: [id number] Regular ACTIVITY: [id number] Activity Restrictions: [id number] No Restrictions FOLLOW UP/APPOINTMENTS Follow-up Plan 1. Take all medications as prescribed. 2. Stop taking your aspirin. See your primary care doctor before restarting it. 3. Make an appointment with your primary care doctor in 1-2 weeks. 4. You should get an abdominal CT scan in 3-6 months to evaluate a right kidney mass which is 1.2 cm. If it is enlarging in size you should be referred to a urologist to have the mass removed. 5. In case you notice future blood in your stools, return to the emergency room. GAVIOTA ROSSI MD Nov 27, 2018 11:15
--- NOTE | 2018-11-27 12:52 | CONS ---
Assessment/Plan Assessment/Plan Hospital Course (Demo Recall) 58 yo with what appears to be a LGIB and renal mass # renal mass MRI is concerning for small RCCa, will have to follow and refer to urology CT chest neg for mets will arrange for outpt urology eval for resection ok for d/c from heme perspective with oupt followup in my office # LGIB s/p repeat EGD and colonoscopy, large hemorrhoids likely cause for LGIB hgb now stable ferrlecit daily x 3 f/u in my office in 2 weeks his info has been forwarded to our new pt dept Consultation Date/Type/Reason Admit Date/Time Nov 22, 2018 at 18:36 Initial Consult Date 11/22/18 Date/Time of Note DATE: 11/27/18 TIME: 12:52 24 HR Interval Summary Free Text/Dictation EGD 11/24/2018 Normal EGD. No bleeding site or potential bleeding site identified to the third portion of the duodenum Colonoscopy 11/24/2018 Large internal hemorrhoids likely source of bleeding. Otherwise normal colonoscopy to cecum. Normal terminal ileum. 11/26/18 ABDO MRI: The liver demonstrates mild diffuse loss in signal intensity on opposed phase sequences compatible with steatosis. The hepatic and portal veins are patent. The gallbladder is contracted. There are no internal signal voids to suggest the presence of cholelithiasis. Mild gallbladder wall edema is observed. There is no intrahepatic biliary duct dilatation. There is no substantial extrahepatic biliary duct dilatation. The common bile duct measures 6 mm in diameter. The pancreas and adrenal glands are unremarkable. The kidneys are symmetric in size, signal intensity and enhancement. There is a small 1.5 cm partially exophytic enhancing solid lesion of the interpolar region of the left kidney most compatible with a small renal cell carcinoma. A tiny 1.0 cm simple cyst of the lower pole of the right kidney is observed. There is no hydronephrosis. 11/25/18: CT chest: Moderate emphysematous changes within the bilateral upper lungs with focal scarring/fibrosis within the right upper lobe. No mass, lymphadenopathy or pulmonary metastatic disease. Thoracic aortic and coronary artery atherosclerosis. Trace bilateral pleural effusions. Liver steatosis. The abdominal aorta is normal in caliber. There is no periaortic / retroperitoneal lymphadenopathy. The stomach and visualized small and large intestines are unremarkable. There are no focal inflammatory changes of the mesentery. There is no mesenteric lymphadenopathy. There is no ascites. There are no bone marrow signal abnormalities. Subcutaneous soft tissues are unremarkable. Constitutional: no complaints Exam/Review of Systems Exam Vitals Vital Signs Date Temp Pulse Resp B/P (MAP) Pulse Ox O2 O2 Flow FiO2 Time Delivery Rate 11/27/18 98.0 60 18 175/84 98 12:06 (114) 11/25/18 Room Air 15:20 11/24/18 10.0 17:15 Intake and Output 11/26/18 11/26/18 11/27/18 1515:00 23:00 07:00 IntakeIntake Total 1000 ml 360 ml OutputOutput Total 1801 ml 550 ml BalanceBalance -801 ml -190 ml Constitutional: alert, oriented, well developed Psych: no complaints, nl mood/affect Head: normocephalic, atraumatic Eyes: nl conjunctiva, EOMI, nl lids, nl sclera, PERRL Neck: supple, non-tender Respiratory: clear to auscultation, normal air movement Cardiovascular: regular rate and rhythm, nl pulses Results Result Diagram: 11/27/18 0552 11/27/18 0552 Results 24hrs Laboratory Tests Test 11/26/18 17:30 11/26/18 20:44 11/27/18 05:52 11/27/18 07:51 Bedside Glucose 134 165 150 White Blood Count 9.0 Red Blood Count 3.14 L Hemoglobin 9.3 L Hematocrit 27.9 L Mean Corpuscular 88.9 Volume Mean Corpuscular 29.6 Hemoglobin Mean Corpuscular 33.3 Hemoglobin Concen t Red Cell 15.2 H Distribution Width Platelet Count 179 # Mean Platelet 9.6 Volume Immature 1.000 H Granulocytes % Neutrophils % 66.9 Lymphocytes % 16.3 Monocytes % 11.7 H Eosinophils % 3.7 Basophils % 0.4 Nucleated Red 0.9 H Blood Cells % Immature 0.090 H Granulocytes # Neutrophils # 6.0 Lymphocytes # 1.5 Monocytes # 1.1 H Eosinophils # 0.3 Basophils # 0.0 Nucleated Red 0.1 H Blood Cells # Sodium Level 137 Potassium Level 3.6 Chloride Level 104 Carbon Dioxide 28 Level Anion Gap 5 Blood Urea 12 Nitrogen Creatinine 0.59 L Est Glomerular > 60 Filtrat Rate mL/min Glucose Level 127 Calcium Level 7.8 L Test 11/27/18 08:25 11/27/18 12:15 Lab Scanned BLOOD TRANSFUSIO Report N Bedside Glucose 117 Medications Medication Current Medications IV Flush (NS 3 ml) 3 ml PER PROTOCOL IV ; Start 11/22/18 at 18:30 Acetaminophen (Tylenol Tab) 650 mg Q6H PRN PO .PAIN 1-3 OR TEMP; Start 11/22/18 at 18:30 Acetaminophen/ Hydrocodone Bitart (Penn (5/325)) 1 tab Q6H PRN PO .MOD PAIN 4- 6; Start 11/22/18 at 18:30 Morphine Sulfate (morphine) 2 mg Q4H PRN IV .SEVERE PAIN 7-10; Start 11/22/18 at 18:30 Docusate Sodium (Colace) 100 mg Q12H PRN PO .CONSTIPATION; Start 11/22/18 at 18:30 Magnesium Hydroxide (Milk Of Mag) 30 ml DAILY PRN PO .CONSTIPATION; Start 11/22/18 at 18:30 Lorazepam (Ativan) 0.5 mg Q6H PRN IV ANXIETY; Start 11/22/18 at 18:30 Albuterol/ Ipratropium (Duoneb) 3 ml Q4H RESP THERAPY PRN HHN SHORTNESS OF BREATH; Start 11/22/18 at 18:30 Hydralazine HCl (Apresoline) 10 mg Q6H PRN IV ELEVATED BLOOD PRESSURE; Start 11/22/18 at 18:30 Nitroglycerin (Nitroglycerin (Sl Tab) 0.4 Mg) 1 tab Q5M PRN SL ANGINA; Start 11/22/18 at 18:30 Insulin Aspart (Novolog Insulin Pen) NOVOLOG *MILD* ALGORITHM WITH MEALS BEDTIME SC Last administered on 11/27/18at 07:59; Admin Dose 1 UNIT; Start 11/25/18 at 07:35 Diagnostic Test (Pha) (Accu-Chek) 1 ea AC MEALS AND BEDTIME XX Last administered on 11/27/18at 12:17; Admin Dose 1 EA; Start 11/25/18 at 07:05 Miscellaneous Information 1 ea NOTE XX ; Start 11/24/18 at 21:30 Glucose (Glutose) 15 gm Q15M PRN PO DECREASED GLUCOSE; Start 11/24/18 at 21:30 Glucose (Glutose) 22.5 gm Q15M PRN PO DECREASED GLUCOSE; Start 11/24/18 at 21:30 Dextrose (D50w Syringe) 25 ml Q15M PRN IV DECREASED GLUCOSE; Start 11/24/18 at 21:30 Dextrose (D50w Syringe) 50 ml Q15M PRN IV DECREASED GLUCOSE; Start 11/24/18 at 21:30 Glucagon (Glucagen) 1 mg Q15M PRN IM DECREASED GLUCOSE; Start 11/24/18 at 21:30 Glucose (Glutose) 15 gm Q15M PRN BUCCAL DECREASED GLUCOSE; Start 11/24/18 at 21:30 Psyllium Hydrophilic Mucilloid (Metamucil) 1 pkt DAILY PO Last administered on 11/26/18at 08:31; Admin Dose 1 PKT; Start 11/26/18 at 09:00 Famotidine (Pepcid) 20 mg DAILY PO Last administered on 11/27/18at 09:04; Admin Dose 20 MG; Start 11/26/18 at 09:00 Phenyleph/Shark Oil/Min Oil/Petrol (Formulation R Oint) 1 applic QHS MT Last administered on 11/26/18at 20:46; Admin Dose 1 APPLIC; Start 11/25/18 at 21:00 OLIVIA MELENDEZ Nov 27, 2018 12:52
--- NOTE | 2018-11-27 16:18 | DS ---
Date/Time of Note Date/Time of Note DATE: 11/27/18 TIME: 16:13 Discharge Summary Admission/Discharge Info Admit Date/Time Nov 22, 2018 at 18:36 Discharge Date/Time November 27, 2018 Discharge Diagnosis Lower GI bleed Patient Condition: Good Consults Dr. Duque, oncology Dr. Stevens, gastroenterology Dr Drake, general surgery Procedures 11/22: Colonoscopy 11/24: EGD and colonoscopy Hx of Present Illness IDENTIFICATION: This is a 58-year-old male. CHIEF COMPLAINT: Weakness and dizziness. HISTORY OF PRESENT ILLNESS: A 58-year-old male with past medical history of diabetes, hypertension, who comes in with weakness and dizziness symptoms. Most of the information was obtained from the ER documentation as the patient is presently getting blood transfusion and unable to provide a full HPI at this time. Apparently, he had been feeling the symptoms of this for the last couple of days. He also had been noticing some dark stools this past Tuesday, so 4 days ago. He described it as a mixture of bright red blood per rectum and dark stools but mostly dark stools. Apparently, the patient denies any alcohol use or NSAID use. Denied any fevers or chills. No nausea or vomiting. No signs of any upper GI bleeding. No chest pain or shortness of breath. When he arrived today, he was found to be hypotensive, systolic blood pressure in the low 90s, and he was tachycardic as well. Heart rate in the 110 to 120 range. He was given IV fluids and also was found with hemoglobin of 6.7. He got emergent uncrossmatched blood, 1 unit of O negative blood with significant improvement. However, shortly after, while the patient was still in the ER, he developed some new onset of bright red blood per rectum and is presently ordered for 3 more units of blood, which he is presently getting now. Emergent call has been made out to the GI team as well as the patient may need to have an emergent scoping such as EGD, colonoscopy, or both. Patient is also ordered for a PPI drip now and octreotide drip as well. PAST MEDICAL HISTORY: As above. ALLERGIES: NO KNOWN DRUG ALLERGIES. HOME MEDICATIONS: Based on list of medicines: 1. Lisinopril 20 mg daily. 2. [place] 3 fatty acids 1 tablet daily. 3. Aspirin 81 mg daily. 4. Hydrochlorothiazide 12.5 mg daily. 5. Metformin 500 mg b.i.d. 6. Multivitamin 1 tab daily. Hospital Course On admission he was taken for colonoscopy (11/22) but prep was poor. CT abdomen was done with possible diverticulosis. On 11/24 he got repeat endoscopy. EGD showed a completely normal esophagus, stomach, and duodenum. On the colonoscopy he was noted to have large internal hemorrhoids and no signs of diverticulosis/itis. Dr. Drake from surgery was consulted for the internal hemorrhoids but declined to operate, saying that diverticulosis was the more likely cause of bleed based on the original CT. The patient required 9 units PRBC transfused total over hospital course. Hgb was stable for the last three days without requiring transfusion, and he was having brown nonbloody bowel movements. Of note, the CT showed a small 1.2 cm inferior renal pole mass. He was instructed to seek repeat CT in 3-6 months for surveillance. Home Meds Reported Medications Multivit-Min/FA/Lycopen/Lutein (Men 50 Plus Multivitamin Tab) 1 Each Tablet, 1 EACH PO DAILY, TAB 11/22/18 Hydrochlorothiazide* (Hydrochlorothiazide*) 12.5 Mg Tablet, 12.5 MG PO DAILY, #30 TAB 11/22/18 Lisinopril* (Lisinopril*) 20 Mg Tablet, 20 MG PO DAILY, #30 TAB 11/22/18 [place]-3 Fatty Acids/Fish Oil (Fish Oil 1,000 mg Capsule) 1 Each Capsule, 1 EACH PO DAILY, CAP 11/22/18 Metformin Hcl* (Metformin Hcl*) 500 Mg Tablet, 500 MG PO WITH BREAKFAST DINNE, #60 TAB 11/22/18 Discontinued Reported Medications Aspirin* (Aspirin* EC) 81 Mg Tablet., 81 MG PO DAILY, TAB 11/22/18 Follow-up Plan 1. Take all medications as prescribed. 2. Stop taking your aspirin. See your primary care doctor before restarting it. 3. Make an appointment with your primary care doctor in 1-2 weeks. 4. You should get an abdominal CT scan in 3-6 months to evaluate a right kidney mass which is 1.2 cm. If it is enlarging in size you should be referred to a urologist to have the mass removed. 5. In case you notice future blood in your stools, return to the emergency room. Primary Care Provider Care Physician No Primary Time spent on discharge: > 30 minutes Pending Labs Laboratory Tests Test 11/26/18 17:30 11/26/18 20:44 11/27/18 05:52 11/27/18 07:51 Bedside 134 165 150 Glucose mg/dL (70-220) mg/dL (70-220) mg/dL (70-220) White Blood 9.0 Count 10^3/ul (4.8-1 0.8) Red Blood 3.14 Count 10^6/ul (4.70- 6.10) Hemoglobin 9.3 g/dl (14.0-18. 0) Hematocrit 27.9 % (42.0-52.0) Mean 88.9 Corpuscular fl (82.0-101.0 Volume ) Mean 29.6 Corpuscular pg (29.0-33.0) Hemoglobin Mean 33.3 Corpuscular g/dl (32.0-37. Hemoglobin Conc 0) ent Red Cell 15.2 Distribution % (11.5-14.5) Width Platelet Count 179 10^3/UL (140-4 15) Mean Platelet 9.6 Volume fl (7.4-10.4) Immature 1.000 Granulocytes % % (0.001-0.429 ) Neutrophils % 66.9 % (39.0-77.0) Lymphocytes % 16.3 % (15.0-51.0) Monocytes % 11.7 % (0.0-11.0) Eosinophils % 3.7 % (0.0-7.0) Basophils % 0.4 % (0.0-2.0) Nucleated Red 0.9 Blood Cells % /100WBC (0.0-0 .0) Immature 0.090 Granulocytes # 10^3/ul (0.0-0 .031) Neutrophils # 6.0 10^3/ul (1.6-7 .5) Lymphocytes # 1.5 10^3/ul (0.8-2 .9) Monocytes # 1.1 10^3/ul (0.3-0 .9) Eosinophils # 0.3 10^3/ul (0.0-0 .5) Basophils # 0.0 10^3/ul (0.0-0 .1) Nucleated Red 0.1 Blood Cells # 10^3/ul (0.0-0 .0) Sodium Level 137 mmol/L (135-14 4) Potassium 3.6 Level mmol/L (3.5-5. 1) Chloride Level 104 mmol/L (97-110 ) Carbon Dioxide 28 Level mmol/L (21-31) Anion Gap 5 (5-13) Blood Urea 12 Nitrogen mg/dl (7-20) Creatinine 0.59 mg/dl (0.61-1. 24) Est Glomerular > 60 Filtrat mL/min (>60) Rate mL/min Glucose Level 127 mg/dl (70-220) Calcium Level 7.8 mg/dl (8.4-10. 2) Test 11/27/18 08:25 11/27/18 12:15 Lab Scanned BLOOD TRANSFUSI Report ON Bedside 117 Glucose mg/dL (70-220) GAVIOTA ROSSI MD Nov 27, 2018 16:18
--- NOTE | 2018-11-28 19:27 | RADRPT ---
Echocardiogram Report Patient Name: Erlinda MULLEN ID: [id number] : 1960 (58y 9m)Study Date: 11/26/2018 12:51:57 PM Gender: MAccession #: [id number] Tech: Shelly Santana RDCS Location: [address] Ref.Physician: FRANCISCO RODRÍGUEZ Height(Cm): BSA: Weight(Kg): Quality: AdequateOrder Physician: FRANCISCO RODRÍGUEZ Account #: Procedures: Echocardiographic Report: Transthoracic echocardiogram with complete 2D, M-Mode, and doppler examination. Indications: Lower Extremity Swelling. Measurements: 2D/M Mode Doppler Measurement Value Normal Range Measurement Value Normal Range LVIDd 2D 4.1 [ 4.2 - 5.8 ] cm AV Peak Kris 1.3 [ 100.0 - 170.0 ] cm/se c LVIDs 2D 2.8 [ 2.5 - 4.0 ] cm AV Peak PG 7.0 [ 2.0 - 9.0 ] mmHg LVPWd 2D 1.1 [ 0.6 - 1.0 ] cm LVOT Peak Kris 1.2 [ 70.0 - 110.0 ] cm/sec IVSd 2D 0.8 [ 0.6 - 1.0 ] cm LVOT Peak PG 5.0 [ 2.0 - 6.0 ] mmHg AoR Diam 2D 3.3 [ 2.6 - 3.4 ] cm MV E Peak Kris 0.9 [ 60.0 - 130.0 ] cm/sec EDV 2D 74.7 [ 62.0 - 150.0 ] ml MV A Peak Kris 0.7 [ 100.0 - 120.0 ] cm/se c ESV 2D 29.8 [ 21.0 - 61.0 ] ml MV E/A 1.2 [ 0.8 - 1.5 ] ratio EF 2D 60.1 [ 52.0 - 72.0 ] percent MV PHT 87.0 [ 20.0 - 100.0 ] msec LA Dimen 2D 3.1 [ 3.0 - 4.0 ] cm MV Decel Time 296 [ 104 - 258 ] msec MV Decel [place] 3 Lat E` Kris 0.1 [ 10.0 - 15.0 ] cm/sec Lateral E/E` 6.3 [ 1.0 - 2.0 ] ratio Med E` Kris 0.1 cm/sec MV E/A 1.2 [ 0.8 - 1.5 ] ratio MVA PHT 2.5 [ 2.0 - 4.0 ] cm2 Findings: Left Ventricle: Normal left ventricular systolic function. Normal left ventricular cavity size. Normal left ventricular wall thickness. Ejection fraction is visually estimated at 60 %. Abnormal Diastolic Function. Right Ventricle: Normal right ventricular size. Normal right ventricular systolic function. Left Atrium: The left atrium is normal in size. Right Atrium: The right atrium is normal in size. Ventricular septum: Normal/intact ventricular septum. Mitral Valve: Normal appearance of the mitral valve. Trace mitral regurgitation. Aortic Valve: Normal appearance of the aortic valve. No significant aortic stenosis or insufficiency. Tricuspid Valve: Normal appearance and function of the tricuspid valve with trace physiologic regurgitation. Pulmonic Valve: Pulmonic valve not well visualized. Pericardium: Normal pericardium with no significant pericardial effusion. Aorta: Normal aortic root. IVC: Dilated IVC with respiratory collapse consistent with elevated right atrial pressure. Conclusions: Normal left ventricular systolic function. Normal left ventricular cavity size. Normal left ventricular wall thickness. Ejection fraction is visually estimated at 60 %. Abnormal Diastolic Function. Normal right ventricular size. Normal right ventricular systolic function. The left atrium is normal in size. The right atrium is normal in size. No significant valvular stenosis or regurgitation seen. Normal pericardium with no significant pericardial effusion. Electronically Signed By: Heath Dodge 2018-11-28 19:26:05 PDT
== END 2018-11-27 16:20 | disposition home or self-care (01) | DRG 393 ==
LOC: E/R 16:36 → REC 18:36 → ICU 21:39 → TEL 11-24 21:49
PROVIDERS: ADMIT Hospitalist; ATTEND Internal Medicine
PROC: 30233L1 Transfusion of Nonautologous Fresh Plasma into Peripheral Vein, Percutaneous Approach (ICD-10-PCS; 2018-11-22)
PROC: 30233N1 Transfusion of Nonautologous Red Blood Cells into Peripheral Vein, Percutaneous Approach (ICD-10-PCS; 2018-11-22)
PROC: 30233K1 Transfusion of Nonautologous Frozen Plasma into Peripheral Vein, Percutaneous Approach (ICD-10-PCS; 2018-11-22)
PROC: 0DJ08ZZ Inspection of Upper Intestinal Tract, Via Natural or Artificial Opening Endoscopic (ICD-10-PCS; principal; 2018-11-24 20:00)
PROC: 0DJD8ZZ Inspection of Lower Intestinal Tract, Via Natural or Artificial Opening Endoscopic (ICD-10-PCS; 2018-11-24 20:00)
DX: K64.8 Other hemorrhoids (principal); K57.91 Diverticulosis of intestine, part unspecified, without perforation or abscess with bleeding; R53.1 Weakness; R42 Dizziness and giddiness; E11.9 Type 2 diabetes mellitus without complications; I10 Essential (primary) hypertension; D64.9 Anemia, unspecified; N28.89 Other specified disorders of kidney and ureter
CPT/HCPCS: 36430; 71045; 71270; 74178; 74183; 76705; 78278; 80048; 80053; 80061; 80076; 82150; 82728; 82962; 83036; 83540; 83690; 83735; 84100; 84439; 84443; 84466; 84484; 85014; 85018; 85025; 85610; 85730; 86644; 86850; 86900; 86901; 86920; 87081; 93005; 93306; 96365; 96375; 97161; 97166; A9560; C9113; J1815; J1940; J2250; J2354; J2370; J3480; J7030; P9016; P9059; Q9967